=== PATIENT | female | born 1940 | race Caucasian/White ===

== ENCOUNTER 2017-06-24 17:16 | Emergency (ER) | payer OTHER ==
[~2017-06-24] VITALS: Ht 162.6 cm; Wt 93.0 kg
[~2017-06-24 17:16] MED LIST: ALBU0.08 INH; ALBUAER9 INH; ALL180 PO; EPP3 IM; FLUT0.0529; INSUINJ4 SC; IPRA1POW NEB; LEVO25TA5 PO; LOSA50TA6 PO; MOME100A INH; NVLGI SC; NYSTCRE11 TOP; POTA10CA28 PO; PREDPOW47; PRLSR20 PO; VERA180T15 PO; ZAFI1TAB10 PO
[2017-06-24 17:28] VITALS: TEMP 36.8; Ht 162.6 cm; Wt 93.0 kg
[2017-06-24] MEDS ORDERED: NYSS/ PO (17:55)
--- NOTE | 2017-06-24 19:03 | EMERGENCY ROOM VISIT NOTE ---
History Report prepared by Hazel: Ad Maurer Under the Supervision of: Dr. Kian Rowe M.D. First contact with patient: 18:54 Chief Complaint: URINARY SYMPTOMS Stated Complaint: BLADDER NOT DRAINING Nursing Triage Summary: Pt states she can't urinate other than dribbles all day today "and it's blocking my bowel". Last BM yesterday. Pt states she had a UTI for a month and a half starting April 30, took 3 different antibiotics. On premarin cream because "my bladder dropped." states dropped bladder seemed better after starting the cream and the fullness is higher up than her last UTI. History of Present Illness The patient is a 76 year old female who presents to the Emergency Room with complaints of constant urinary retention beginning this morning. The patient states that she was diagnosed with a small bowel obstruction three months ago and a UTI one month ago. She reports that her UTI was treated with amoxicillin, but then her symptoms came back. The patient notes that she was experiencing an increase in urinary frequency and dysuria. She states that she was then treated with a stronger antibiotic. The patient reports that she then began to experience pressure in her bladder, so she went to her doctor. She notes that she was told she had a prolapsed bladder. The patient states that now, she cannot urinate. She reports that when she tries to, it dribbles out. She denies dysuria. The patient notes that she has not seen a urologist or RESEARCH AND DEVELOPMENT RESEARCHER yet. Source of History: patient Onset: this morning Position: other (bladder) Quality: other (urinary retention) Timing: constant Note: Denies: dysuria Review of Systems See HPI for pertinent positives & negatives. A total of 10 systems reviewed and were otherwise negative. Past Medical & Surgical Medical Problems: (1) Anaphylaxis (2) Asthma (3) Benign essential hypertension (4) Diabetes mellitus type 2 (5) Diabetic neuropathy (6) Diverticular disease of colon (7) Dyslipidemia (8) Fatty liver (9) Gastroesophageal reflux disease (10) Generalized osteoarthritis (11) Paroxysmal atrial tachycardia (12) s/p cholecystectomy (13) s/p colonoscopy (14) s/p EGD (15) s/p hysterectomy (16) s/p left TKA (17) s/p right TKA Family History FHx: diabetes FHx: gallbladder disease FHx: heart disease FHx: hypertension FHx: lung disease Social History Smoking Status: Never Smoker Alcohol Use: none Marital Status: Housing Status: lives alone Occupation Status: retired Current/Historical Medications Scheduled Cephalexin Monohydrate (Keflex), 500 MG PO QID Coenzyme Q10 (Ubidecarenone) (Coq-10), 1 TAB PO DAILY Epinephrine (Epipen), 0.3 MG IM UD Estrogens, Conjugated (Premarin), 0.625 MG PO 3XWK Fluticasone Furoate-Vilanterol (Breo Ellipta), 1 PUFF INH Q2D Fluticasone Furoate-Vilanterol (Breo Ellipta), 1 PUFF INH Q2D Grape Seed (Grape Seed Extract), 1 CAP PO DAILY Hydrochlorothiazide (Hctz), 12.5 MG PO DAILY Insulin Aspart (Novolog Flexpen), 28-30 UNITS SQ AC Losartan Potassium (Losartan Potassium), 50 MG PO DAILY Multivitamins/Minerals (Mvi With Minerals), 1 TAB PO DAILY Nystatin (Nystatin Cream), 1 APPL TOP prn Potassium Chloride (Potassium Chloride Sr), 10 MEQ PO DAILY Simvastatin (Simvastatin), 10 MG PO DAILY Verapamil HCl (Verapamil HCl ER), 180 MG PO BID Scheduled PRN Albuterol Hfa (Ventolin Hfa), 2 PUFFS INH Q4 PRN for SOB/Wheezing Albuterol Sulf (Proventil 0.083% 2.5MG/3ML), 1 VIAL NEB Q4 PRN for SOB/Wheezing Doxycycline Hyclate (Doxycycline Hyclate), 1 TAB PO BID PRN for ASTHMA RESQUE KIT Fluticasone Propionate (Nasal) (Flonase Allergy Relief), 1 SPRAY MIRNA DAILY PRN for Nasal Congestion Guaifenesin (Mucinex Maximum Strength), 1 TAB PO BID PRN for congestion Ipratropium Priddy (Atrovent 0.02% Soln), 2.5 ML NEB Q4 PRN for SOB/Wheezing Miscellaneous Medications Nystatin (Nystatin Suspension), 100,000 UNIT PO Allergies Coded Allergies: Chicken Allergy (Verified Allergy, Severe, ANAPHYLAXIS, 07/16/15) Poultry Meal (Verified Allergy, Severe, ANAPHYLAXIS, 07/16/15) Sulfa Drugs (Verified Allergy, Intermediate, HIVES, 07/16/15) Sulfamethoxazole w/Trimethoprim (Verified Allergy, Intermediate, HIVES, ) Amoxicillin (Verified Allergy, Unknown, ?, 07/16/15) NAUSEA Aspirin (Unverified Allergy, Unknown, GI BLEED, 07/16/15) Clavulanic Acid (Verified Allergy, Unknown, ?, 07/16/15) NAUSEA Egg (Verified Allergy, Unknown, ANAPHYLAXIS, 07/16/15) Influenza Virus Vaccine H5N1 (Verified Allergy, Unknown, ANAPHYLAXIS, 07/16) Lisinopril (Unverified Allergy, Unknown, COUGH, 07/16/15) Nizatidine (Verified Allergy, Unknown, ?, 07/16/15) Pioglitazone (Verified Allergy, Unknown, SWELLING, 07/16/15) Metformin (Verified Adverse Reaction, Unknown, DIARRHEA, 07/16/15) Uncoded Allergies: EGGS (Allergy, Unknown, ANAPHYLAXIS, 06/02/15) MONTELUKAST SODIUM (Allergy, Unknown, PRESSURE IN HEAD, EARS, MOUTH DRYNESS , NAUSEA, SKIN HURTS, 06/02/15) Physical Exam Vital Signs Date Time Temp Pulse Resp B/P (MAP) Pulse Ox O2 Delivery O2 Flow Rate FiO2 06/24/17 21:53 76 18 147/76 94 Room Air 06/24/17 21:37 78 06/24/17 21:14 78 17 149/64 92 Room Air 06/24/17 20:05 73 18 153/73 95 Room Air 06/24/17 17:28 36.8 87 18 145/83 93 Room Air Physical Exam GENERAL: Patient is a healthy-appearing well-nourished 76 year old female HEAD: Normocephalic atraumatic EYES: Ocular movements intact pupils equal and react to light OROPHARYNX mucous membranes are moist no exudates present no erythema or edema present NECK: Supple no nuchal rigidity CHEST: Good equal expansion LUNGS: Clear and equal to auscultation CARDIAC: Normal S1 and S2 ABDOMEN: Soft nontender no guarding BACK: No CVA tenderness EXTREMITIES: No pain upon palpation normal muscle strength in all groups no clubbing cyanosis or edema NEURO: Patient is following commands and answering questions appropriately. Alert and oriented x3 Cranial Nerves 2-12 grossly intact Medical Decision & Procedures ER Provider Diagnostic Interpretation: Radiology results as stated below per my review and radiologist interpretation: CT ABD/PELVIS IV CONTRAST ONLY CLINICAL HISTORY: Diffuse abdominal pain COMPARISON STUDY: 08/17/2012 TECHNIQUE: Following the IV administration of 92 mL of Optiray-320, CT scan of the abdomen and pelvis was performed from the lung bases to the proximal femurs. Images are reviewed in the axial, sagittal, and coronal planes. IV contrast was administered without complication. A dose lowering technique was utilized adhering to the principles of ALARA. CT DOSE: 1140.04 mGy.cm FINDINGS: Lower chest: There are bibasal atelectatic changes. Heart is mildly enlarged. Liver: The contrast-enhanced liver is normal in size, contour, and attenuation. There is no intrahepatic biliary ductal dilatation. The hepatic veins and portal veins are patent. Gallbladder: Not visualized and presumed surgically absent Spleen: Normal in size and attenuation. Pancreas: Unremarkable. Adrenal glands: Unremarkable. Kidneys: There is symmetric renal cortical enhancement. The kidneys are normal in size without hydronephrosis. Bowel: There is severe pancolonic diverticulosis. The appendix appears normal. There are no transition zones indicate bowel obstruction. There is no evidence of acute diverticulitis. Peritoneum: There is no intraperitoneal free air or abdominal ascites. There is a small fat-containing lower abdominal ventral hernia Vasculature: The abdominal aorta is normal in course and caliber. Adenopathy: None. Pelvic viscera: There is an indwelling Cartagena catheter. The bladder is decompressed. The uterus appears surgically absent. Skeletal structures: No destructive osseous lesions are seen. IMPRESSION: 1. No evidence of bowel obstruction. No evidence of free air 2. Severe nguyen colonic diverticulosis. No evidence of acute diverticulitis 3. Normal appendix 4. Small fat-containing lower abdominal ventral hernia Electronically signed by: Shady Sanchez M.D. 06/24/2017 8:47 PM Dictated Date/Time: 06/24/2017 8:41 PM Laboratory Results 06/24/17 19:55 Red Blood Count 4.92, Mean Corpuscular Volume 92.1, Mean Corpuscular Hemoglobin 31.1, Mean Corpuscular Hemoglobin Concent 33.8, Mean Platelet Volume 10.5, Neutrophils (%) (Auto) 54.0, Lymphocytes (%) (Auto) 32.6, Monocytes (%) (Auto) 11.4, Eosinophils (%) (Auto) 1.5, Basophils (%) (Auto) 0.3, Neutrophils # (Auto ) 5.98, Lymphocytes # (Auto) 3.61, Monocytes # (Auto) 1.26, Eosinophils # (Auto ) 0.17, Basophils # (Auto) 0.03 06/24/17 19:55 Test 06/24/17 19:15 06/24/17 19:55 06/24/17 20:02 06/24/17 21:10 Urine Color YELLOW Urine Appearance CLOUDY (CLEAR) Urine pH 6.0 (4.5-7.5) Urine Specific [place] 1.022 (1.000-1.030) Urine Protein NEG (NEG) Urine Glucose (UA) NEG (NEG) Urine Ketones NEG (NEG) Urine Occult Blood NEG (NEG) Urine Nitrite NEG (NEG) Urine Bilirubin NEG (NEG) Urine Urobilinogen NEG (NEG) Urine Leukocyte Esterase LARGE (NEG) Urine WBC (Auto) >30 /hpf (0-5) Urine RBC (Auto) 0-4 /hpf (0-4) Urine Hyaline Casts (Auto) 0 /lpf (0-5) Urine Epithelial Cells (Auto) 0-5 /lpf (0-5) Urine Bacteria (Auto) 4+ (NEG) White Blood Count 11.07 K/uL (4.8-10.8) Red Blood Count 4.92 M/uL (4.2-5.4) Hemoglobin 15.3 g/dL (12.0-16.0) Hematocrit 45.3 % (37-47) Mean Corpuscular Volume 92.1 fL (80-100) Mean Corpuscular Hemoglobin 31.1 pg (25-34) Mean Corpuscular Hemoglobin Concent 33.8 g/dl (32-36) Platelet Count 221 K/uL (130-400) Mean Platelet Volume 10.5 fL (7.4-10.4) Neutrophils (%) (Auto) 54.0 % Lymphocytes (%) (Auto) 32.6 % Monocytes (%) (Auto) 11.4 % Eosinophils (%) (Auto) 1.5 % Basophils (%) (Auto) 0.3 % Neutrophils # (Auto) 5.98 K/uL (1.4-6.5) Lymphocytes # (Auto) 3.61 K/uL (1.2-3.4) Monocytes # (Auto) 1.26 K/uL (0.11-0.59) Eosinophils # (Auto) 0.17 K/uL (0-0.5) Basophils # (Auto) 0.03 K/uL (0-0.2) RDW Standard Deviation 45.5 fL (36.4-46.3) RDW Coefficient of Variation 13.5 % (11.5-14.5) Immature Granulocyte % (Auto) 0.2 % Immature Granulocyte # (Auto) 0.02 K/uL (0.00-0.02) Est Creatinine Clear Calc Drug Dose 60.3 ml/min Estimated GFR () 76.1 Estimated GFR (Non- 65.6 BUN/Creatinine Ratio 17.4 (10-20) Calcium Level 9.2 mg/dl (8.5-10.1) Total Bilirubin 0.4 mg/dl (0.2-1) Direct Bilirubin < 0.1 mg/dl (0-0.2) Aspartate Amino Transf (AST/SGOT) 20 U/L (15-37) Alanine Aminotransferase (ALT/SGPT) 38 U/L (12-78) Alkaline Phosphatase 89 U/L (45-117) Total Protein 7.5 gm/dl (6.4-8.2) Albumin 3.6 gm/dl (3.4-5.0) Lipase 108 U/L (73-393) Bedside Hemoglobin 16.0 g/dl (12.0-16.0) Bedside Hematocrit 47 % (37-47) Bedside Sodium 142 mEq/L (135-144) Bedside Potassium 4.1 mEq/L (3.3-5.0) Bedside Chloride 105 mEq/L (101-112) Bedside Total CO2 28 mEq/l (24-31) Anion Gap 15.0 mmol/L (16-25) Bedside Blood Urea Nitrogen 18 mg/dl (7-18) Bedside Creatinine 0.7 mg/dl (0.6-1.3) Bedside Glucose (other) 71 mg/dl (70-99) Bedside Ionized Calcium ([place]) 1.17 mmol/l (1.12-1.32) Bedside Glucose 129 mg/dl (70-90) Labs reviewed by ED physician. Medications Administered Medications (Trade) Dose Ordered Sig/Lyle Route Start Time Stop Time Status Last Admin Dose Admin Sodium Chloride 1,000 ml @ 999 mls/hr Q1H1M STAT IV 06/24/17 19:39 06/24/17 20:39 DC 8/29/17 20:17 999 MLS/HR Ceftriaxone Sodium (Rocephin Inj) 1 gm NOW STAT IV 06/24/17 19:55 06/24/17 19:56 DC 06/24/17 20:20 1 GM ED Course 1855: Past medical records reviewed. The patient was evaluated in room B04B. A complete history and physical examination was performed. 1938: Ordered Sodium Chloride 1000 ml @ 999 mls/hr IV 1954: Ordered Rocephin Inj 1gm IV 2058: I reevaluated the patient and discussed current exam findings. She has shown great improvement of her symptoms. 2144: Upon reexamination the patient is feeling better. I discussed results and treatment plan with the patient. She verbalizes agreement and understanding. The patient is ready for discharge. Medical Decision This is a 76-year-old female who presents emergency department urinary complaints. Based on the patient's complaints a Cartagena catheter was first started however very little was drained. The patient does have a large amount of white blood cells in her urine and does appear to have an infection. For this reason she was started on Rocephin in the emergency department. The patient was sent for CAT scan of the abdomen pelvis however there does not appear to be in any acute process. I do believe that the patient as well as to be discharged home for follow-up with her primary care physician. Patient and family were in agreement with the treatment plan. Medication Reconcilliation Current Medication List: was personally reviewed by me Blood Pressure Screening Patient's blood pressure: Elevated blood pressure Blood pressure disposition: Referred to PCP Impression Primary Impression: Symptoms of urinary tract infection Scribe Attestation The scribe's documentation has been prepared under my direction and personally reviewed by me in its entirety. I confirm that the note above accurately reflects all work, treatment, procedures, and medical decision making performed by me. Departure Information Dispostion Home / Self-Care Prescriptions Cephalexin Monohydrate (KEFLEX) 500 Mg Cap 500 MG PO QID for 10 Days, #40 CAP Prov: Kian Rowe MD 06/24/17 Referrals Mel Vitale M.D. (PCP) Forms HOME CARE DOCUMENTATION FORM, IMPORTANT VISIT INFORMATION Patient Instructions My [facility] Additional Instructions Follow up with DR Nettles' office You were found to have an elevated blood pressure today (>120 sytolic or >90 diastolic). Per medicare guidelines, you need to follow up with this blood pressure screening with your Primary Care Physician (PCP). For a new PCP call [phone]. Culture results are usually available in approx 48 hours You have been examined and treated today on an emergency basis only. This is not a substitute for, or an effort to provide, complete comprehensive medical care. It is impossible to recognize and treat all injuries or illnesses in a single emergency department visit. It is therefore important that you follow up closely with Dr Scott. Call as soon as possible for an appointment. Thank you for your time and consideration. I look forward to speaking with you again soon. Please don't hesitate to call us if you have any questions.
[2017-06-24] MEDS ORDERED: SODIUM CHLORIDE 0.9% 1000ML 1,000 ML IV STA (19:39)
[2017-06-24 19:42] LABS: URINE APPEARANCE CLOUDY (CLEAR); URINE BILIRUBIN NEG (NEG); URINE COLOR YELLOW; URINE EPITHELIAL CELL AUTO 0-5 /lpf (0-5); URINE NITRITE NEG (NEG); URINE SPECIFIC GRAVITY 1.022 (1.000-1.030); UROBILINOGEN NEG (NEG); ZZURINE CULT IF INDIC CATH YES
[2017-06-24] MEDS ORDERED: OPTIRAY 320 IV PRN (19:45)
[2017-06-24 19:48] LABS: MANUAL MICROSCOPIC REQUIRED? NO; REVIEW REQ? NO
[2017-06-24] MEDS ORDERED: FLUT1INH INH (19:55)
[2017-06-24] MEDS ORDERED: PRM625 PO (19:55)
[2017-06-24] MEDS ORDERED: NVLGI/PEN SQ (19:55)
[2017-06-24] MEDS ORDERED: FLUT0.15 NAE (19:55)
[2017-06-24] MEDS ORDERED: SIMV-151 PO (19:55)
[2017-06-24] MEDS ORDERED: PROP1SOL OPB (19:55)
[2017-06-24] MEDS ORDERED: COEN100C11 PO (19:55)
[2017-06-24] MEDS ORDERED: CEFTRIAXONE SOD INJ 1 GM ADDVIAL IV STA (19:55)
[2017-06-24] MEDS ORDERED: MULT-513 PO (19:55)
[2017-06-24] MEDS ORDERED: GRAP50CA3 PO (19:55)
[2017-06-24] MEDS ORDERED: NYSCR30 TOP (19:55)
[2017-06-24] MEDS ORDERED: EPP3/2 IM (19:55)
[2017-06-24] MEDS ORDERED: DOXY100T PO (19:55)
[2017-06-24] MEDS ORDERED: ALBINS/ NEB (19:55)
[2017-06-24] MEDS ORDERED: CZR50 PO (19:55)
[2017-06-24] MEDS ORDERED: VRPSR180 PO (19:55)
[2017-06-24] MEDS ORDERED: VNTHFA/IN INH (19:55)
[2017-06-24] MEDS ORDERED: GUAI1TAB69 PO (19:55)
[2017-06-24] MEDS ORDERED: POTA10TA33 PO (19:55)
[2017-06-24] MEDS ORDERED: ATRINSX NEB (19:55)
[2017-06-24 20:14] LABS: BASO % 0.3 %; BASO ABS # 0.03 K/uL (0-0.2); COMPLETE YES; EOS % 1.5 %; HEMATOCRIT 45.3 % (37-47); IG% 0.2 %; LYMPH % 32.6 %; LYMPH ABS # 3.61 K/uL (1.2-3.4); MEAN CELL VOLUME 92.1 fL (80-100); MEAN CORPUSCULAR HEMOGLOBIN 31.1 pg (25-34); MEAN CORPUSCULAR HGB CONC 33.8 g/dl (32-36); MEAN PLATELET VOLUME 10.5 fL (7.4-10.4); MONO % 11.4 %; PLATELET COUNT 221 K/uL (130-400); RED BLOOD COUNT 4.92 M/uL (4.2-5.4); WHITE BLOOD COUNT 11.07 K/uL (4.8-10.8)
[2017-06-24 20:15] LABS: ISTAT CREATININE 0.7 mg/dl (0.6-1.3); ISTAT IONIZED CALCIUM 1.17 mmol/l (1.12-1.32)
--- NOTE | 2017-06-24 20:48 | DIAGNOSTIC IMAGING REPORT ---
CT ABD/PELVIS IV CONTRAST ONLY CLINICAL HISTORY: Diffuse abdominal pain COMPARISON STUDY: 08/17/2012 TECHNIQUE: Following the IV administration of 92 mL of Optiray-320, CT scan of the abdomen and pelvis was performed from the lung bases to the proximal femurs. Images are reviewed in the axial, sagittal, and coronal planes. IV contrast was administered without complication. A dose lowering technique was utilized adhering to the principles of ALARA. CT DOSE: 1140.04 mGy.cm FINDINGS: Lower chest: There are bibasal atelectatic changes. Heart is mildly enlarged. Liver: The contrast-enhanced liver is normal in size, contour, and attenuation. There is no intrahepatic biliary ductal dilatation. The hepatic veins and portal veins are patent. Gallbladder: Not visualized and presumed surgically absent Spleen: Normal in size and attenuation. Pancreas: Unremarkable. Adrenal glands: Unremarkable. Kidneys: There is symmetric renal cortical enhancement. The kidneys are normal in size without hydronephrosis. Bowel: There is severe pancolonic diverticulosis. The appendix appears normal. There are no transition zones indicate bowel obstruction. There is no evidence of acute diverticulitis. Peritoneum: There is no intraperitoneal free air or abdominal ascites. There is a small fat-containing lower abdominal ventral hernia Vasculature: The abdominal aorta is normal in course and caliber. Adenopathy: None. Pelvic viscera: There is an indwelling Cartagena catheter. The bladder is decompressed. The uterus appears surgically absent. Skeletal structures: No destructive osseous lesions are seen. IMPRESSION: 1. No evidence of bowel obstruction. No evidence of free air 2. Severe nguyen colonic diverticulosis. No evidence of acute diverticulitis 3. Normal appendix 4. Small fat-containing lower abdominal ventral hernia Electronically signed by: Shady Sanchez M.D. 06/24/2017 8:47 PM Dictated Date/Time: 06/24/2017 8:41 PM
[2017-06-24] MEDS ORDERED: HYDR12.56 PO (20:56)
[2017-06-24 21:01] LABS: ALKALINE PHOSPHATASE 89 U/L (45-117); ALT/SGPT 38 U/L (12-78); AST/SGOT 20 U/L (15-37); BLOOD UREA NITROGEN 15 mg/dl (7-18); BUN/CREATININE RATIO 17.4 (10-20); CALCIUM 9.2 mg/dl (8.5-10.1); CARBON DIOXIDE 28 mmol/L (21-32); CHLORIDE 108 mmol/L (98-107); CREATININE 0.85 mg/dl (0.60-1.20); GLUCOSE 68 mg/dl (70-99); SODIUM 143 mmol/L (136-145)
[2017-06-24] MEDS ORDERED: CEPH500C2 PO (21:51)
[2017-06-24 21:53] VITALS: BP 147/76; PULSE 76; O2SAT 94
--- NOTE | 2017-06-26 13:11 | Pharmacy Progress Note ---
ED Pharmacist Culture FollowUp Date of Service: Jun 26, 2017. Patient was sent home with a prescription for cephalexin 500mg QID x 10 days, which should cover the E. coli growing from the patient's urine culture.
[2017-08-05] MEDS ORDERED: PRMVC (07:43)
== END 2017-06-24 22:07 | disposition home or self-care (01) ==
LOC: C.EDB 17:17
DX: R33.9 Retention of urine, unspecified (principal); J45.909 Unspecified asthma, uncomplicated; I10 Essential (primary) hypertension; E11.40 Type 2 diabetes mellitus with diabetic neuropathy, unspecified; E78.5 Hyperlipidemia, unspecified; K76.0 Fatty (change of) liver, not elsewhere classified; K21.9 Gastro-esophageal reflux disease without esophagitis; M19.90 Unspecified osteoarthritis, unspecified site; I47.1 Supraventricular tachycardia; K57.92 Diverticulitis of intestine, part unspecified, without perforation or abscess without bleeding; Z83.3 Family history of diabetes mellitus; Z83.79 Family history of other diseases of the digestive system; Z82.49 Family history of ischemic heart disease and other diseases of the circulatory system; Z83.6 Family history of other diseases of the respiratory system; Z79.4 Long term (current) use of insulin; Z79.899 Other long term (current) drug therapy

== ENCOUNTER → 2017-08-12 | Day surgery (SDC) | payer OTHER ==
[2017-08-05 07:43] VITALS: BMI 34.0
[~2017-08-12] VITALS: Ht 162.6 cm; Wt 90.9 kg
[~2017-08-12] MED LIST changes: +ALBINS/ NEB; -ALBU0.08 INH; -ALBUAER9 INH; -ALL180 PO; +ATRINSX NEB; +COEN100C11 PO; +CZR50 PO; +DOXY100T PO; -EPP3 IM; +EPP3/2 IM; +FENTANYL CITRATE INJ 50 MCG/1 ML 2 ML VIAL ONE; -FLUT0.0529; +FLUT0.15 NAE; +FLUT1INH INH; +GRAP50CA3 PO; +GUAI1TAB69 PO; +HYDR12.56 PO; -INSUINJ4 SC; -IPRA1POW NEB; +KETAMINE HCL INJ 50 MG/ML 10 ML VIAL ONE; -LEVO25TA5 PO; -LOSA50TA6 PO; +MIDAZOLAM HCL 1 MG/ML 2ML VIAL ONE; -MOME100A INH; +MULT-513 PO; -NVLGI SC; +NVLGI/PEN SQ; +NYSCR30 TOP; +NYSS/ PO; -NYSTCRE11 TOP; +ONDANSETRON INJ 2 MG/ML 2 ML VIAL ONE; -POTA10CA28 PO; +POTA10TA33 PO; -PREDPOW47; -PRLSR20 PO; +PRMVC; +SIMV-151 PO; +SODIUM CHLORIDE 0.9% 500ML 500 ML IV ONE; +SODIUM CHLORIDE 0.9% INJ 10 ML VIAL ONE; -VERA180T15 PO; +VNTHFA/IN INH; +VRPSR180 PO; -ZAFI1TAB10 PO
[2017-08-12 10:08] VITALS: Ht 162.6 cm; Wt 90.9 kg
--- NOTE | 2017-08-12 10:37 | Endo History and Physical ---
History & Physical Date of Service: Aug 12, 2017. Chief Complaint: hx Barretts Referring Physician: Dr. Scott History of Present Illness 76 yo presenting for follow up of [facility] for EGD Past Medical History Diabetes, Asthma, Gastrointestinal Disorder, Reflux, High Cholesterol, Heart Disease, Hypertension, Liver Disease Past Surgical History Hx Cardiac Surgery: No Hx Internal Defibrillator: No Hx Pacemaker: No Hx Abdominal Surgery: Yes (LUDWIG, EMMY BSO, ) Hx of Implantable Prosthesis: No Hx Post-Op Nausea and Vomiting: No Hx Cancer Surgery: No Hx Thoracic Surgery: No Hx Orthopedic: Yes (LT/RT TKA) Hx Urinary Tract Surgery: No Family History None Social History Smoking Status: Never Smoker Hx Substance Use: No Hx Alcohol Use: No Allergies Coded Allergies: Chicken Allergy (Verified Allergy, Severe, ANAPHYLAXIS, 08/12/17) Poultry Meal (Verified Allergy, Severe, ANAPHYLAXIS, 08/12/17) Propofol (Verified Allergy, Severe, R/T EGG ALLERGY - ANAPHYLAXIS, ) Sulfa Drugs (Verified Allergy, Intermediate, HIVES, 08/12/17) Sulfamethoxazole w/Trimethoprim (Verified Allergy, Intermediate, HIVES, ) Amoxicillin (Verified Allergy, Unknown, ?, 08/12/17) NAUSEA Aspirin (Unverified Allergy, Unknown, GI BLEED, 08/12/17) Clavulanic Acid (Verified Allergy, Unknown, ?, 08/12/17) NAUSEA Egg (Verified Allergy, Unknown, ANAPHYLAXIS, 08/12/17) Influenza Virus Vaccine H5N1 (Verified Allergy, Unknown, ANAPHYLAXIS, ) Lisinopril (Unverified Allergy, Unknown, COUGH, 08/12/17) Nizatidine (Verified Allergy, Unknown, ?, 08/12/17) Pioglitazone (Verified Allergy, Unknown, SWELLING, 08/12/17) Metformin (Verified Adverse Reaction, Unknown, DIARRHEA, 08/12/17) Uncoded Allergies: EGGS (Allergy, Unknown, ANAPHYLAXIS, 06/02/15) MONTELUKAST SODIUM (Allergy, Unknown, PRESSURE IN HEAD, EARS, MOUTH DRYNESS , NAUSEA, SKIN HURTS, 06/02/15) Current Medications Reported Home Medications Medications Dose Route/Sig Max Daily Dose Days Date Category Dose Instructions Premarin (Estrogens, Conjugated) 14 Appln/30 Gm Cr 1 Dose 2XWK 08/05/17 Reported Mvi With Minerals (Multivitamins/Minerals) Tab 1 Tab PO DAILY 06/24/17 Reported Coq-10 (Coenzyme Q10 (Ubidecarenone)) Unknown Strength Cap 1 Tab PO DAILY 06/24/17 Reported Grape Seed Extract (Grape Seed) 50 Mg Cap 1 Cap PO DAILY 06/24/17 Reported Mucinex Maximum Strength (Guaifenesin) 1,200 Mg Tab 1 Tab PO BID PRN 15 06/24/17 Reported Flonase Allergy Relief (Fluticasone Propionate (Nasal)) 50 Mcg/Act Spr 1 [place] MIRNA DAILY PRN 06/24/17 Reported Epipen (Epinephrine) 0.3 Mg/0.3 Ml Inj 0.3 Mg IM UD 06/24/17 Reported Proventil 0.083% 2.5MG/3ML (Albuterol Sulf) 2.5 Mg/3 Ml Nebu 1 Vial NEB Q4 PRN 06/24/17 Reported Doxycycline Hyclate 100 Mg Tab 1 Tab PO BID PRN 10 06/24/17 Reported Ventolin Hfa (Albuterol) 200 Puffs/38008 Mcg Aers 2 Puffs INH Q4 PRN 06/24/17 Reported Verapamil HCl ER (Verapamil HCl) 180 Mg Tabcr 180 Mg PO BID 06/24/17 Reported Losartan Potassium 50 Mg Tab 50 Mg PO QAM 06/24/17 Reported Atrovent 0.02% Soln (Ipratropium [place]) 2.5 Ml Nebu 2.5 Ml NEB Q4 PRN 06/24/17 Reported Nystatin Cream (Nystatin) 90 Appln/30 Gm Cr 1 Appl TOP PRN 06/24/17 Reported APPLY TO RASH IN GROIN AREA OR BREAST PRN Simvastatin 20 Mg Tab 0.5 Tab PO QPM 06/24/17 Reported Potassium Chloride Sr (Potassium Chloride) 10 Meq Tab 10 Meq PO QAM 06/24/17 Reported Novolog Flexpen (Insulin Aspart) 100 Units/Ml Inj 28-30 Units SQ AC 06/24/17 Reported Breo Ellipta (Fluticasone Furoate-Vilanterol) 1 Inh Inh 1 Puff INH Q2D 06/24/17 Reported 100-25 MCG STRENGTH, ALTERNATE WITH 200-25 MCG Breo Ellipta (Fluticasone Furoate-Vilanterol) 1 Inh Inh 1 Puff INH Q2D 06/24/17 Reported 200-25 MCG, ALTERNATE QOD WITH 100-25MCG Nystatin Suspension (Nystatin) 1 Ml Susp 100,000 Unit PO 08/05/14 Reported TAKE 5 ML 4 TIMES A DAY NEEDED FOR THRUSH Hctz (Hydrochlorothiazide) 12.5 Mg Cap 12.5 Mg PO QAM 08/17/12 Reported Vital Signs Weight (Kilograms): 90.91 Height (Feet): 5 Height (Inches): 4 Date Time Temp Pulse Resp B/P (MAP) Pulse Ox O2 Delivery O2 Flow Rate FiO2 08/12/17 10:14 36.7 75 22 168/75 (106) 94 Room Air Physical Exam General Appearance: WD/WN, no apparent distress Respiratory/Chest: Respiratory effort: no dyspnea Cardiovascular: Apical Impulse: not displaced Heart Auscultation: RRR Abdomen: Bowel Sounds: normal Inspection & Palpation: soft Assessment and Plan 76 yo presenting for EGD f/u of [facility]
--- NOTE | 2017-08-12 11:10 | GI REPORT ---
Procedure Date: 08/12/2017 10:12 AM Procedure: Upper GI endoscopy Indications: Follow-up of Johnson's esophagus Medicines: General Anesthesia Complications: No immediate complications. Estimated blood loss: None. Estimated Blood Loss: Estimated blood loss: none. Procedure: Pre-Anesthesia Assessment: - Pre-Anesthesia Assessment: - Prior to the procedure, a History and Physical was performed, and patient medications, allergies and sensitivities were reviewed. The patient's tolerance of previous anesthesia was reviewed. Please see [facility] for complete details. - The risks and benefits of the procedure and the sedation options and risks were discussed with the patient. All questions were answered and informed consent was obtained. - Patient identification and proposed procedure were verified prior to the procedure by the physician and the nurse. The procedure was verified in the pre-procedure area in the procedure room. After obtaining informed consent, the endoscope was passed carefully and meticuously under direct vision and only advanced when the lumen was clearly identified, C02 insuflation was utilized throughout the entirity of the procedure. Throughout the procedure, the patient's blood pressure, pulse, and oxygen saturations were monitored continuously. After obtaining informed consent, the endoscope was passed under direct vision. Throughout the procedure, the patient's blood pressure, pulse, and oxygen saturations were monitored continuously. The scope was introduced through the mouth, and advanced to the second part of duodenum. The upper GI endoscopy was accomplished without difficulty. The patient tolerated the procedure well. Findings: The esophagus and gastroesophageal junction were examined with white light and narrow band imaging (NBI) from a forward view and retroflexed position. There were esophageal mucosal changes classified as Johnson's stage C1-M1 per [facility] criteria. These changes involved the mucosa at the upper extent of the gastric folds (40 cm from the incisors) extending to the Z-line (39 cm from the incisors). The maximum longitudinal extent of these esophageal mucosal changes was 1 cm in length. Mucosa was biopsied with a cold forceps for histology in a targeted manner at intervals of 1 cm from 39 to 40 cm from the incisors. A total of 2 specimen bottles were sent to pathology. A hiatus hernia was present. One non-bleeding superficial gastric ulcer with a clean ulcer base (Solitario Class III) was found in the prepyloric region of the stomach. The lesion was 5 mm in largest dimension. Biopsies were taken with a cold forceps for histology. The examined duodenum was normal. Impression: - Esophageal mucosal changes classified as Johnson's stage C1-M1 per [facility] criteria. Biopsied. - Hiatus hernia. - Non-bleeding gastric ulcer with a clean ulcer base (Solitario Class III). Biopsied. - Normal examined duodenum. Recommendation: - Discharge patient to home (with escort). - Use Prilosec (omeprazole) 40 mg PO BID for 2 months. - Repeat the upper endoscopy in 2 months to check healing. - No aspirin, ibuprofen, naproxen, or other non-steroidal anti-inflammatory drugs. Loy Stallworth MD 08/12/2017 11:10:02 AM This report has been signed electronically. Note Initiated On: 08/12/2017 10:12 AM I attest to the content of the Intraoperative Record and orders documented therein, exceptions below
--- NOTE | 2017-08-12 11:14 | Discharge Instructions ---
Endoscopy Patient Instructions Date / Procedure(s) Performed Aug 12, 2017. EGD Allergy Information Coded Allergies: Chicken Allergy (Verified Allergy, Severe, ANAPHYLAXIS, 08/12/17) Poultry Meal (Verified Allergy, Severe, ANAPHYLAXIS, 08/12/17) Propofol (Verified Allergy, Severe, R/T EGG ALLERGY - ANAPHYLAXIS, ) Sulfa Drugs (Verified Allergy, Intermediate, HIVES, 08/12/17) Sulfamethoxazole w/Trimethoprim (Verified Allergy, Intermediate, HIVES, ) Amoxicillin (Verified Allergy, Unknown, ?, 08/12/17) NAUSEA Aspirin (Unverified Allergy, Unknown, GI BLEED, 08/12/17) Clavulanic Acid (Verified Allergy, Unknown, ?, 08/12/17) NAUSEA Egg (Verified Allergy, Unknown, ANAPHYLAXIS, 08/12/17) Influenza Virus Vaccine H5N1 (Verified Allergy, Unknown, ANAPHYLAXIS, ) Lisinopril (Unverified Allergy, Unknown, COUGH, 08/12/17) Nizatidine (Verified Allergy, Unknown, ?, 08/12/17) Pioglitazone (Verified Allergy, Unknown, SWELLING, 08/12/17) Metformin (Verified Adverse Reaction, Unknown, DIARRHEA, 08/12/17) Uncoded Allergies: EGGS (Allergy, Unknown, ANAPHYLAXIS, 06/02/15) MONTEL[place]AST SODIUM (Allergy, Unknown, PRESSURE IN HEAD, EARS, MOUTH DRYNESS , NAUSEA, SKIN HURTS, 06/02/15) Discharge Date / Findings Aug 12, 2017. Small ulcer Esophagitis Johnson's Will start you on Prilosec 40 mg twice daily for two months, and then repeat your procedure in 2 months. Avoid NSAIDs Medication Instructions Stopped Medication(s): told to only take BP meds Provider Instructions Activity Restrictions - No exercising or heavy lifting for 24 hours. - Do not drink alcohol the day of the procedure. - Do not drive a car or operate machinery until the day after the procedure. - Do not make any important decisions or sign important papers in 24 hours after the procedure. Following Day: - Return to full activity which may include returning to work/school. Diet Start your diet with liquids and light foods (jello, soup, juice, toast). Then eat your usual diet if not nauseated. Treatment For Common After Affects For mild abdominal pain, bloating, or excessive gas: - Rest - Eat lightly - Lie on right side Follow-Up Information Follow-up with Dr. Scott as scheduled Anesthesia Information What You Should Know You have had a procedure that required some medicine to reduce anxiety and discomfort. This treatment is called moderate sedation. After receiving the treatment, you may be sleepy, but you will be able to breathe on your own. The effects of the treatment may last for several hours. Follow these instructions along with Activity/Diet recommendations noted above: * Do NOT do anything where dizziness or clumsiness would be dangerous. * Rest quietly at home today, then you can be up and about tomorrow. * Have a responsible person stay with you the rest of today. * You may have had an I.V. today. If so, you may take the dressing off later today. Recommendations Call your doctor if: * Trouble breathing * Continuous vomiting for more than 24 hours * Temperature above 101 degrees * Severe abdominal pain or bloating * Pain not relieved by pain medicine ordered * There is increased drainage or redness from any incision * A large amount of rectal bleeding greater than 2-3 tablespoons. (If you had a polyp/s removed or have hemorrhoids, a small amount of blood - from the rectum is to be expected.) * You have any unanswered questions or concerns. IN THE EVENT OF A SERIOUS EMERGENCY, GO TO THE NEAREST EMERGENCY ROOM Your discharge instructions were prepared by provider Loy Stallworth. Patient Instructions Signature Page Mehreen Araujo Patient (or Guardian) Signature/Date: I have read and understand the instructions given to me by my caregivers. Caregiver/RN/Doctor Signature/Date: The above-named patient and/or guardian has received patient instructions on this date. + Original Patient Signature Page (only) stays with chart. Please make copy for patient.
--- NOTE | 2017-08-12 11:42 | Anesthesiology Progress Note ---
Anesthesia Post Op Note Date & Time Aug 12, 2017 at 11:42 Vital Signs Pain Intensity: 0 Vital Signs Past 12 Hours Date Time Temp Pulse Resp B/P (MAP) Pulse Ox O2 Delivery O2 Flow Rate FiO2 08/12/17 11:18 72 20 127/63 (84) 99 Room Air 08/12/17 11:03 73 20 132/72 (92) 99 Room Air 08/12/17 10:14 36.7 75 22 168/75 (106) 94 Room Air Notes Mental Status: alert / awake / arousable, participated in evaluation Pt Amnestic to Procedure: Yes Nausea / Vomiting: adequately controlled Pain: adequately controlled Airway Patency, RR, SpO2: stable & adequate BP & HR: stable & adequate Hydration State: stable & adequate Anesthetic Complications: no major complications apparent
[2017-08-12 11:57] VITALS: BP 135/88; PULSE 65; O2SAT 95
== END | disposition home or self-care (01) ==
LOC: C.GI 09:45
PROVIDERS: ATTEND Internal Medicine
DX: Z09 Encounter for follow-up examination after completed treatment for conditions other than malignant neoplasm (principal); K22.70 Barrett's esophagus without dysplasia; E11.9 Type 2 diabetes mellitus without complications; K44.9 Diaphragmatic hernia without obstruction or gangrene; K25.9 Gastric ulcer, unspecified as acute or chronic, without hemorrhage or perforation; J45.909 Unspecified asthma, uncomplicated; E78.00 Pure hypercholesterolemia, unspecified; I10 Essential (primary) hypertension; Z79.4 Long term (current) use of insulin; Z90.49 Acquired absence of other specified parts of digestive tract; Z96.653 Presence of artificial knee joint, bilateral; Z68.34 Body mass index [BMI] 34.0-34.9, adult; Z88.2 Allergy status to sulfonamides; Z88.1 Allergy status to other antibiotic agents; Z91.012 Allergy to eggs; Z91.018 Allergy to other foods

== ENCOUNTER 2019-06-14 07:52 | Observation (INO) ==
--- OUTSIDE RECORDS SUMMARY | 2019-06-14 07:56 | External Medical Summary | Continuity of Care Document ---
:1940 Author Name Tiffanie Fu, Provider Address Unavailable Unavailable , Care Team Providers Name Role Phone Unavailable Unavailable Unavailable Teddy Kay M.D. Unavailable [email or web address] 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) Diverticulosis (562.10) (K57.90) Dyslipidemia (272.4) (E78.5) Diabetic polyneuropathy (250.60) (E11.42) Paroxysmal atrial tachycardia (427.0) (I47.1) Hypertension (401.9) (I10) Type 2 diabetes mellitus (250.00) (E11.9) Osteoarthritis (715.90) Allergies and Adverse Reactions Actos TABS (Allergy) Reaction: Edema Amoxicillin TABS (Allergy) Aspirin TABS (Allergy) Augmentin TABS (Allergy) Bactrim TABS (Allergy) Reaction: Hives Influenza (Split PF) (Allergy) Lisinopril TABS (Allergy) Reaction: Coug h Morphine Derivatives (Allergy) Nizatidine CAPS (Allergy) Riomet SOLN (Allergy) Reaction: Diarrhea Eggs (Allergy) Medications Verapamil HCl ER 180 MG Oral Capsule Ext ended Release 24 Hour; Take 1 capsule twice daily SIDRA Page Start: 16-Apr-2012 Refills: 0 Proventil HFA 108 (90 Base) MCG/ACT Inha lation Aerosol Solution; USE 2 PUFFS EVERY 6 HOURS DIRECTED. , M.D. Refills: 0 Vitamin D-3 5000 UNIT Oral Tablet; Take 1 tablet daily , M.D . Refills: 0 Multivitamins TABS; TAKE 1 TABLET DAILY. , M.D. Refills: 0 Cozaar 50 MG Oral Tablet; TAKE 1 TABLET DAILY. , M.D. Refills: 0 EpiPen 0.3 MG/0.3ML (1:1000) USAMA; INJECT INTRAMUSCULARLY DIRECTED. , M.D. Refills: 0 Simvastatin 10 MG Oral Tablet; TAKE 20 MG Daily , M.D. Refills: 0 NovoLIN 70/30 SUSP; USE DIRECTED. , M.D. Refills: 0 Corinne 180 MG TABS; TAKE 1 TABLET DAILY. , M.D. Refills: 0 Albuterol Sulfate (2.5 MG/3ML) 0.083% In halation Nebulization Solution; USE 1 UNIT DOSE EVERY 4-6 HOURS NEEDED FOR WHEEZING . , M.D. Refills: 0 Chelated Magnesium TABS; TAKE 1 TABLET Daily 250mg , M.D. Refills: 0 Zafirlukast 20 MG Oral Tablet; TAKE 1 TABLET EVERY 12 HOURS DAILY. Tank Kay Start: 07-Feb-2014 Quantity: 60 Refills: 3 Montelukast Sodium 10 MG Oral Tablet; TAKE 1 TABLET BY MOUTH AT BEDTIME Tank Kay Start: 01-Feb-2014 Quantity: 30 Refills: 11 predniSONE 10 MG Oral Tablet; 4 tablets daily for 3 days, 3 tablets daily for 3 days, 2 tablets daily for 3 days, one tablet daily for 3 days, then discontinue. Tank Kay Start: 22-Jul-2014 Quantity: 30 Refills: 1 Azithromycin 250 MG Oral Tablet; Take 2 tablets on day one, then one tablet daily for 4 days. Tank Kay Start: 22-Jul-2014 Quantity: 6 Refills: 1 Lantus 100 UNIT/ML Subcutaneous Solution; USE DIRECTED. , M.D. Refills: 0 Nystatin 757480 UNIT/ML Mouth/Throat Suspension; CHEW SARAH DIDDIPIKA M.DCharo Refills: 0 Mucinex TB12; TAKE 1 TABLET EVERY 12 HOURS NEEDED FOR CON GESTION. , M.D. Refills: 0 Systane Balance 0.6 % SOLN; INSTILL DROP As Directed , MCharoDCharo Refills: 0 Dulera 200-5 MCG/ACT Inhalation Aerosol; INHALE 2 PUFF S TWICE DAILY. Tank Kay Start: 01-Feb-2014 Quantity: 1 13 GM Inhaler Refills: 11 Probiotic Oral Capsule , M.D. Refills: 0 Potassium Chloride ER 10 MEQ Oral Capsul e Extended Release; TAKE 0.5 CAPSULE Daily , M.D. Refills: 0 hydroCHLOROthiazide 12.5 MG Oral Tablet; TAKE 1 TABLET DAILY . , M.D. Refills: 0 CoQ10 100 MG Oral Capsule; TAKE DIRECTED. , M.D. Refills: 0 Grape Seed Extract CAPS; TAKE 1 CAPSULE Daily , M.D. Refills: 0 Vicodin 5-500 MG TABS; TAKE 1 TO 2 TABLETS EVERY 6 WALT RS NEEDED FOR PAIN. , M.D. Refills: 0 Procedures History of Cholecystectomy Status: Compl eted History of Colonoscopy (Fiberoptic) Stat us: Completed History of Hysterectomy Status: Complete d History of Total Knee Arthroplasty Statu s: Completed History of Nasal Endoscopy Polypectomy S tatus: Completed Immunizations Immunizations not documented Family History Father Family history of Aneurysm Of Abdominal Aorta Status: Active Family history of Hypertension (V17.49) Status: Active Family history of Asthma (V17.5) Status: Active Mother Family history of Dementia Status: Active Sister Family history of Thyroid Disorder (V18.19) Status: Active Grandfather Family history of Asthma (V17.5) Status: Active Social History - Smoking Status Never smoker Plan of Treatment Planned Observations Planned Goals not documented Results No Known Results Results not documented
--- NOTE | 2019-06-14 08:15 | Emergency Department Note ---
ED Visit Note I assisted attending Dr. Beverly in the care of this patient. Please see attending's note for details of the visit. Keren Holland MD Executive Assistant PGY-3 . Resident Activity Tracking Resident Involvement: Resident Care Provided Care Provided: Adult ED : GI (gastrointestinal bleed) Qualifiers: GI bleed type/associated pathology: unspecified gastrointestinal hemorrhage type Qualified Code(s): K92.2 - Gastrointestinal hemorrhage, unspecified Knee pain, left Qualifiers: Chronicity: acute Qualified Code(s): M25.562 - Pain in left knee
[2019-06-14 08:22] LABS: Basophils # (auto) 0.03 K/uL (0-0.2); Basophils % (auto) 0.4 %; Eosinophils # (auto) 0.16 K/uL (0-0.5); Eosinophils % (auto) 2.1 %; Hematocrit (blood only) 39.7 % (37-47); Hemoglobin 13.2 g/dL (12.0-16.0); Immature Granulocytes # (auto) 0.01 K/uL (0.00-0.02); Immature Granulocytes % (auto) 0.1 %; Lymphocytes # (auto) 1.94 K/uL (1.2-3.4); Lymphocytes % (auto) 25.6 %; Mean Corpuscular Hgb Conc 33.2 g/dL (32-36); Mean Corpuscular Volume 90.4 fL (80-100); Mean Platelet Volume 10.8 fL (7.4-10.4); Monocytes # (auto) 0.69 K/uL (0.11-0.59); Monocytes % (auto) 9.1 %; Neutrophils # (auto) 4.74 K/uL (1.4-6.5); Neutrophils % (auto) 62.7 %; Platelet Count 209 K/uL (130-400); RDW Coefficient of Variation 13.2 % (11.5-14.5); RDW Standard Deviation 43.9 fL (36.4-46.3); Red Blood Count 4.39 M/uL (4.2-5.4); White Blood Count 7.57 K/uL (4.8-10.8)
[2019-06-14] MEDS ORDERED: PANTOprazole 80 MG in DEXTROSE 5% 100 ML IV SCH (08:30)
[2019-06-14 08:33] LABS: INR 1.1 (0.9-1.1); Partial Thromboplastin Ratio 0.9; Prothrombin Time 10.9 Seconds (9.0-12.0)
--- NOTE | 2019-06-14 08:33 | XRay Report ---
XR chest 1V portable HISTORY: 78 years-old Female lightheaded COMPARISON: Chest radiograph 04/30/2013 TECHNIQUE: Portable AP view of the chest FINDINGS: Cardiac silhouette is enlarged, unchanged. Chronic ill-defined opacity of the lateral left lung base suggestive of atelectasis/scarring or prominent epicardial fat pad. Calcified plaque of the thoracic aortic arch. No pneumothorax, large pleural effusion, overt pulmonary edema or lobar airspace consoli dation. Degenerative changes of the shoulders and spine. IMPRESSION: Cardiomegaly without acute process. The above report was generated using voice recognition software. It may contain grammatical, syntax o r spelling errors. Electronically signed by: Ras Dahl M.D. 06/14/2019 8:32 AM
[2019-06-14 08:40] LABS: Albumin Level 3.6 gm/dl (3.4-5.0); BUN Creatinine Ratio 20.7 (10-20); Calcium 9.2 mg/dl (8.5-10.1); Creatinine Clr Calc Pharmacy 72.9 ml/min; Est GFR (African American) 91.7; Est GFR (Non-African American) 79.1; Potassium 3.9 mmol/L (3.5-5.1)
[2019-06-14 08:45] LABS: Albumin Globulin Ratio 1.1 (0.9-2); Bilirubin,Total 0.4 mg/dl (0.2-1); Globulin 3.1 gm/dl (2.5-4.0); Total Protein 6.7 gm/dl (6.4-8.2); Troponin I 0.016 ng/ml (0-0.045)
[2019-06-14] MEDS ORDERED: IOVERSOL 100ml IV PRN (08:55)
--- NOTE | 2019-06-14 08:55 | XRay Report ---
XR knee LT 3V CLINICAL HISTORY: pain TRAUMA COMPARISON: None DISCUSSION: There are postsurgical changes of a total left knee arthroplasty and patellar resurfacing . No fractures or dislocations are visualized. IMPRESSION: Total left knee arthroplasty. No fractures or dislocations identified. Electronically signed by: Shady Sanchez M.D. 06/14/2019 8:54 AM
--- NOTE | 2019-06-14 09:10 | CT Scan Report ---
CT abd pelvis IV con only CLINICAL HISTORY: GIB GASTROINTESTINAL BLEEDING, ABDOMINAL PAIN COMPARISON STUDY: 06/24/2017 TECHNIQUE: The patient was scanned in a dynamic helical fashion during intravenous administration of 93 cc of Optiray 320. A dose lowering technique was utilized adhering to the principles of ALARA. CT DOSE: 1235.36 mGy.cm FINDINGS: Lower chest: There are basilar atelectatic changes. Liver: There is hepatic steatosis. No focal masses are visualized. The portal vein is patent. Gallbladder: Not visualized and presumed surgically absent Spleen: Normal in size and attenuation. Pancreas: Unremarkable. Adrenal glands: Unremarkable. Kidneys: There is symmetric renal cortical enhancement. The kidneys are normal in size without hydron ephrosis. Bowel: There are no transition zones indicate bowel obstruction. There is extensive pancolonic divert iculosis. No acute peridiverticular inflammatory changes are visualized. The appendix appears normal Peritoneum: There is no intraperitoneal free air or abdominal ascites. There is a small fat-containin g umbilical hernia. 2 additional lower abdominal ventral hernias are visualized. A small bowel loop p rotrudes into the base of 1 hernias. There are no current obstructive changes. Vasculature: The abdominal aorta is normal in course and caliber. Adenopathy: None. Pelvic viscera: The uterus is surgically absent Skeletal structures: No destructive osseous lesions are seen. IMPRESSION: 1. No evidence of bowel obstruction. No evidence of free air 2. Severe nguyen colonic diverticulosis. No evidence of acute diverticulitis 3. Normal appendix 4. Multiple small ventral hernias. Electronically signed by: Shady Sanchez M.D. 06/14/2019 9:09 AM
--- NOTE | 2019-06-14 10:01 | Emergency Department Note ---
Entered by Leah Orta acting as a scribe for Kade Beverly M.D. History of Present Illness General Chief complaint: Rectal Bleed Time Seen by Provider: 06/14/19 07:54 Source: patient History of Present Illness Provider complaint: rectal bleeding Onset (ago): day(s) 1 Pain Consistency: + other (persistent) Relieved By: + none Exacerbated By: + none Associated symptoms: + headaches and + other (+abdominal pain, +lightheaded, - blurred vision); no chest pain and no shortness of breath The patient is a 78 year old female who presents to the Emergency Room with complaints of rectal bleeding. The patient states that she has an episode of rectal bleeding that started yesterday morning. She reports that she has no episodes throughout the day and then returned at 2200 yesterday. She notes that she has had episodes of rectal bleeding every hour since then. She notes that that her stool is maroon color and not red. She notes that she has right ab dominal pain that radiates to her back. She states that she has a headache and is lightheaded. The patient denies any chest pain, shortness of breath, or blurred vision. She notes that she took vitamin K and Protonix. She notes that she has a history of ulcers and diverticulitis. Home Medications Home Medications Medication Instructions Recorded Confirmed Type Lactobacillus acidophilus 100 mmu cells PO TIDM 06/14/19 06/14/19 History [Probiotic Acidophilus] albuterol sulfate 2 puff INHALATION Q4H PRN 06/14/19 06/14/19 History albuterol sulfate 2.5 mg INHALATION Q4H PRN 06/14/19 06/14/19 History benzonatate 100 mg PO TID PRN 06/14/19 06/14/19 History cetirizine 10 mg PO DAILY 06/14/19 06/14/19 History cholecalciferol (vitamin D3) 2,000 unit PO DAILY 06/14/19 06/14/19 History [Vitamin D3] coenzyme Q10 [CoQ-10] 600 mg PO DAILY 06/14/19 06/14/19 History conjugated estrogens 0.625 mg VAGINAL DAILY 06/14/19 06/14/19 History diclofenac sodium 75 mg PO BID 06/14/19 06/14/19 History epinephrine 0.3 mg IM Q3H PRN 06/14/19 06/14/19 History fluticasone furoate-vilanterol 1 inh INHALATION DAILY 06/14/19 06/14/19 History fluticasone propionate 1 puff INHALATION BID 06/14/19 06/14/19 History fluticasone propionate 2 spray INTRANASAL DAILY 06/14/19 06/14/19 History furosemide 20 mg PO DAILY 06/14/19 06/14/19 History grape seed extract 150 mg PO DAILY 06/14/19 06/14/19 History hydrochlorothiazide 12.5 mg PO DAILY 06/14/19 06/14/19 History insulin aspart U-100 [Novolog 20 unit SUBCUT TID 06/14/19 06/14/19 History U-100 Insulin aspart] insulin glargine [Lantus U-100 20 unit SUBCUT HS 06/14/19 06/14/19 History Insulin] losartan 50 mg PO DAILY 06/14/19 06/14/19 History multivitamin 1 tab PO DAILY 06/14/19 06/14/19 History nystatin 1 applic TOPICAL TID 06/14/19 06/14/19 History omeprazole 40 mg PO BID 06/14/19 06/14/19 History potassium chloride 10 meq PO DAILY 06/14/19 06/14/19 History propylene glycol [Systane Balance] 1 drp OPHTHALMIC (EYE) QID 06/14/19 06/14/19 History pseudoephedrine-guaifenesin 1 tab PO Q12H PRN 06/14/19 06/14/19 History [Mucinex D Maximum Strength] simvastatin 10 mg PO DAILY 06/14/19 06/14/19 History tiotropium bromide [Spiriva 2 puff INHALATION DAILY 06/14/19 06/14/19 History Respimat] verapamil 180 mg PO BID 06/14/19 06/14/19 History Allergies Allergy/AdvReac Type Severity Reaction Status Date / Time chicken derived Allergy Severe ANAPHYLAXIS Verified 06/14/19 09:54 Poultry Allergy Severe ANAPHYLAXIS Verified 06/14/19 09:54 propofol Allergy Severe R/T EGG Verified 06/14/19 09:54 ALLERGY - ANAPHYLAXIS Bactrim Allergy Intermediate HIVES Verified 10/16/17 09:45 Sulfa (Sulfonamide Allergy Intermediate HIVES Verified 06/14/19 09:54 Antibiotics) sulfamethoxazole Allergy Intermediate HIVES Verified 06/14/19 09:54 trimethoprim Allergy Intermediate HIVES Verified 06/14/19 09:54 amoxicillin Allergy Unknown ? Verified 06/14/19 09:54 aspirin Allergy Unknown GI BLEED Unverified 06/14/19 09:54 clavulanic acid Allergy Unknown ? Verified 06/14/19 09:54 egg Allergy Unknown ANAPHYLAXIS Verified 06/14/19 09:54 influenza virus vaccine, Allergy Unknown ANAPHYLAXIS Verified 06/14/19 09:54 specific lisinopril Allergy Unknown COUGH Unverified 06/14/19 09:54 nizatidine Allergy Unknown ? Verified 06/14/19 09:54 pioglitazone Allergy Unknown SWELLING Verified 06/14/19 09:54 metformin AdvReac Unknown DIARRHEA Verified 06/14/19 09:54 EGGS Allergy Unknown ANAPHYLAXIS Uncoded 06/14/19 09:54 MONTELUKAST SODIUM Allergy Unknown PRESSURE Uncoded 06/14/19 09:54 IN HEAD, EARS, MOUTH DRYNESS, NAUSEA, SKIN HURTS Past Med/Surg History Medical History Diverticulosis (Chronic) HTN (hypertension) (Chronic) HLD (hyperlipidemia) (Chronic) Asthma (Chronic) Diabetes mellitus, type II (Chronic) Paroxysmal atrial fibrillation (Chronic) HOFFMAN (nonalcoholic steatohepatitis) (Chronic) GERD (gastroesophageal reflux disease) (Chronic) Diverticulitis (Acute) Surgical History H/O: hysterectomy (Chronic) History of arthroplasty of left knee (Chronic) Hx of cholecystectomy (Chronic) Family History Other Hypertension Social History Preferred Language: Occitan Communication Ability: Effective Beliefs That Will Affect Care: None marital status: / Current Living Situation: Alone Other Information That Helps Us Care for You: No Feels Safe at Home: Yes Safety Concerns: Feels Safe At This Time Smoking Status: Never smoker Hx Alcohol Use: No Hx Substance Use: No Review of Systems See HPI for pertinent positives & negatives. and A total of 10 systems reviewed and were otherwise negative Physical Exam Vital Signs Vital Signs - 24 hr 06/14/19 07:55 06/14/19 08:33 06/14/19 09:16 Temperature 36.8 C Temperature Source Oral Sepsis Recent Fever Within 48 Hours No Sepsis New/Unexplained Change in Mental Status No Sepsis Action Taken by Nursing No Action Required Pulse Rate 93 H Pulse Rate [Finger] 79 73 Respiratory Rate 18 18 18 Respiratory Effort / Characteristics Non-Labored Non-Labored Non-Labored Respiratory Depth Normal Normal Normal Blood Pressure 197/89 H Blood Pressure [Left Arm] 172/83 H 157/79 H Blood Pressure Mean 125 Blood Pressure Mean [Left Arm] 112 105 Pulse Oximetry 92 94 96 Oxygen Delivery Method Room Air Room Air Nasal Cannula Oxygen Flow Rate 2 06/14/19 10:00 Temperature Temperature Source Sepsis Recent Fever Within 48 Hours Sepsis New/Unexplained Change in Mental Status Sepsis Action Taken by Nursing Pulse Rate Pulse Rate [Finger] 76 Respiratory Rate 16 Respiratory Effort / Characteristics Non-Labored Respiratory Depth Normal Blood Pressure Blood Pressure [Left Arm] 166/86 H Blood Pressure Mean Blood Pressure Mean [Left Arm] 112 Pulse Oximetry 97 Oxygen Delivery Method Nasal Cannula Oxygen Flow Rate 2 GENERAL: Awake, alert, well-appearing, in no distress HENT: Normocephalic, atraumatic. Oropharynx unremarkable. EYES: Normal conjunctiva. Sclera non-icteric. NECK: Supple. No nuchal rigidity. RESPIRATORY: Clear to auscultation. No wheezes. Normal respiratory effort. CARDIAC: Normal rate. Normal rhythm. Extremities warm and well perfused. GI: Soft, non-distended. Mild right sided abdominal tenderness to palpation. No rebound or guarding. No masses. RECTAL: Deferred. MUSCULOSKELETAL: Atraumatic. Chest examination reveals no tenderness. There is no CVA tenderness to palpation. LOWER EXTREMITIES: Calves are equal size bilaterally and non-tender. Left leg 1+ edema. Slight distally left knee tenderness. NEURO: Normal sensorium. No sensory or motor deficits noted. No facial droop. SKIN: Warm and dry. No rash or jaundice noted. Course 0756: The patient was seen and evaluated by the Resident Physician, Dr. Keren Holland, at this time. History and physical were discussed with me. 0829: The patient was evaluated in room A3, and a complete history and physical examination were performed. 1005: I reviewed the patient's case with Dr. Zunilda Reza. She will evaluate the patient for further management. Consultations Consultation #1: Dr. Zunilda Reza Time: 10:05 Administered Medications Artificial Tears (Artificial Tears) 1 drops OP QID [facility] Stop: 07/14/19 12:59 Last Admin: 06/14/19 13:34 Dose: 1 drops Documented by: [id number] Insulin Aspart (Novolog Flexpen) 0 units SC ACHS [facility] Stop: 07/14/19 16:29 Last Admin: 06/14/19 13:32 Dose: 1 units Documented by: [id number] Cosigned by: [id number] Nystatin (Nystatin) 1 appln EXT TID [facility] Stop: 07/14/19 13:59 Last Admin: 06/14/19 13:37 Dose: Not Given Documented by: [id number] Discontinued Medications Pantoprazole Sodium 80 mg/ (Dextrose) 120 mls @ 480 mls/hr IV TODAY@0830 [facility] Stop: 06/14/19 08:44 Last Infusion: 06/14/19 09:04 Dose: 0 mls/hr Documented by: [id number] Admin: 06/14/19 08:38 Dose: 480 mls/hr Documented by: [id number] Ioversol (Optiray 320 100ml) 93 ml IV ONCE PRN PRN Reason: Interaction Checking Stop: 06/18/19 08:54 Last Admin: 06/14/19 08:56 Dose: 93 ml Documented by: [id number] Medical Decision Making Differential Diagnosis Differential diagnosis: Etiologies such as appendicitis, diverticulitis, PUD, biliary pathology, UTI, pancreatitis, obstruction, mesenteric ischemia, aortic pathology, infections, inflammatory bowel disease, renal colic, as well as oth ers were entertained. Medical Records Attestation: I reviewed the patient's medical records. Home Medications Current Medication List: was personally reviewed by me Laboratory Data Attestation: I reviewed the patient's lab results. Result diagrams: 06/14/19 07:50 06/14/19 07:50 Lab Results 06/14/19 06/14/19 06/14/19 Range/Units 07:50 07:50 07:50 WBC 7.57 (4.8-10.8) K/uL RBC 4.39 (4.2-5.4) M/uL Hgb 13.2 (12.0-16.0) g/dL Hct 39.7 (37-47) % MCV 90.4 (80-100) fL MCH 30.1 (25-34) pg MCHC 33.2 (32-36) g/dL RDW Std Deviation 43.9 (36.4-46.3) fL RDW Coeff of Neena 13.2 (11.5-14.5) % Plt Count 209 (130-400) K/uL MPV 10.8 H (7.4-10.4) fL Immature Gran % (Auto) 0.1 % Neut % (Auto) 62.7 % Lymph % (Auto) 25.6 % Emmons % (Auto) 9.1 % Eos % (Auto) 2.1 % Baso % (Auto) 0.4 % Immature Gran # (Auto) 0.01 (0.00-0.02) K/uL Neut # (Auto) 4.74 (1.4-6.5) K/uL Lymph # (Auto) 1.94 (1.2-3.4) K/uL Emmons # (Auto) 0.69 H (0.11-0.59) K/uL Eos # (Auto) 0.16 (0-0.5) K/uL Baso # (Auto) 0.03 (0-0.2) K/uL PT 10.9 (9.0-12.0) Seconds INR 1.1 (0.9-1.1) APTT 25.0 (21.0-31.0) Seconds PTT Ratio 0.9 Sodium (136-145) mmol/L Potassium (3.5-5.1) mmol/L Chloride (98-107) mmol/L Carbon Dioxide (21-32) mmol/L Anion Gap (3-11) BUN (7-18) mg/dl Creatinine (0.6-1.2) mg/dl Est Cr Clr Drug Dosing ml/min Est GFR ( Amer) Est GFR (Non-Af Amer) BUN/Creatinine Ratio (10-20) Glucose (70-99) mg/dl Calcium (8.5-10.1) mg/dl Total Bilirubin (0.2-1) mg/dl AST (15-37) U/L ALT (12-78) U/L Alkaline Phosphatase (45-117) U/L Troponin I Cancelled Total Protein (6.4-8.2) gm/dl Albumin (3.4-5.0) gm/dl Globulin (2.5-4.0) gm/dl Albumin/Globulin Ratio (0.9-2) Lipase Cancelled POC Stool Occult Blood (Negative) Blood Type Antibody Screen 06/14/19 06/14/19 06/14/19 Range/Units 07:50 08:20 08:22 WBC (4.8-10.8) K/uL RBC (4.2-5.4) M/uL Hgb (12.0-16.0) g/dL Hct (37-47) % MCV (80-100) fL MCH (25-34) pg MCHC (32-36) g/dL RDW Std Deviation (36.4-46.3) fL RDW Coeff of Neena (11.5-14.5) % Plt Count (130-400) K/uL MPV (7.4-10.4) fL Immature Gran % (Auto) % Neut % (Auto) % Lymph % (Auto) % Emmons % (Auto) % Eos % (Auto) % Baso % (Auto) % Immature Gran # (Auto) (0.00-0.02) K/uL Neut # (Auto) (1.4-6.5) K/uL Lymph # (Auto) (1.2-3.4) K/uL Emmons # (Auto) (0.11-0.59) K/uL Eos # (Auto) (0-0.5) K/uL Baso # (Auto) (0-0.2) K/uL PT (9.0-12.0) Seconds INR (0.9-1.1) APTT (21.0-31.0) Seconds PTT Ratio Sodium 139 (136-145) mmol/L Potassium 3.9 (3.5-5.1) mmol/L Chloride 104 (98-107) mmol/L Carbon Dioxide 26 (21-32) mmol/L Anion Gap 9.0 (3-11) BUN 15 (7-18) mg/dl Creatinine 0.72 (0.6-1.2) mg/dl Est Cr Clr Drug Dosing 72.9 ml/min Est GFR ( Amer) 91.7 Est GFR (Non-Af Amer) 79.1 BUN/Creatinine Ratio 20.7 H (10-20) Glucose 211 H (70-99) mg/dl Calcium 9.2 (8.5-10.1) mg/dl Total Bilirubin 0.4 (0.2-1) mg/dl AST 23 (15-37) U/L ALT 46 (12-78) U/L Alkaline Phosphatase 71 (45-117) U/L Troponin I 0.016 Total Protein 6.7 (6.4-8.2) gm/dl Albumin 3.6 (3.4-5.0) gm/dl Globulin 3.1 (2.5-4.0) gm/dl Albumin/Globulin Ratio 1.1 (0.9-2) Lipase 93 POC Stool Occult Blood Positive A (Negative) Blood Type O Negative Antibody Screen NEGATIVE Imaging Data Radiologist's Impression: Radiology results as stated below per my review and the radiologist's interpretation: CT abd pelvis IV con only CLINICAL HISTORY: GIB GASTROINTESTINAL BLEEDING, ABDOMINAL PAIN COMPARISON STUDY: 06/24/2017 TECHNIQUE: The patient was scanned in a dynamic helical fashion during intravenous administration of 93 cc of Optiray 320. A dose lowering technique was utilized adhering to the principles of ALARA. CT DOSE: 1235.36 mGy.cm FINDINGS: Lower chest: There are basilar atelectatic changes. Liver: There is hepatic steatosis. No focal masses are visualized. The portal vein is patent. Gallbladder: Not visualized and presumed surgically absent Spleen: Normal in size and attenuation. Pancreas: Unremarkable. Adrenal glands: Unremarkable. Kidneys: There is symmetric renal cortical enhancement. The kidneys are normal in size without hydronephrosis. Bowel: There are no transition zones indicate bowel obstruction. There is extensive pancolonic diverticulosis. No acute peridiverticular inflammatory changes are visualized. The appendix appears normal Peritoneum: There is no intraperitoneal free air or abdominal ascites. There is a small fat-containing umbilical hernia. 2 additional lower abdominal ventral hernias are visualized. A small bowel loop protrudes into the base of 1 hernias. There are no current obstructive changes. Vasculature: The abdominal aorta is normal in course and caliber. Adenopathy: None. Pelvic viscera: The uterus is surgically absent Skeletal structures: No destructive osseous lesions are seen. IMPRESSION: 1. No evidence of bowel obstruction. No evidence of free air 2. Severe nguyen colonic diverticulosis. No evidence of acute diverticulitis 3. Normal appendix 4. Multiple small ventral hernias. Electronically signed by: Shady Sanchez M.D. 06/14/2019 9:09 AM XR chest 1V portable HISTORY: 78 years-old Female lightheaded COMPARISON: Chest radiograph 04/30/2013 TECHNIQUE: Portable AP view of the chest FINDINGS: Cardiac silhouette is enlarged, unchanged. Chronic ill-defined opacity of the lateral left lung base suggestive of atelectasis/scarring or prominent epicardial fat pad. Calcified plaque of the thoracic aortic arch. No pn eumothorax, large pleural effusion, overt pulmonary edema or lobar airspace consolidation. Degenerative changes of the shoulders and spine. IMPRESSION: Cardiomegaly without acute process. The above report was generated using voice recognition software. It may contain grammatical, syntax or spelling errors. Electronically signed by: Ras Dahl M.D. 06/14/2019 8:32 AM ECG Data Attestation: I personally reviewed and interpreted this ECG as follows: Indication: abdominal pain Rate (beats per minute): 76 Rhythm: sinus rhythm Findings: + other (normal interval ); no PVC, no ST depression and no ST elevation Blood Pressure Blood Pressure Findings: Elevated blood pressure MDM Narrative Patient is a 78-year-old female with a past medical history of diabetes, hypertension, asthma diverticulitis, GERD, gastric ulcer presenting today with complaint of rectal bleeding. Patient not currently maintained on anticoagulation or antiplatelet agents. Presents today via EMS and seen in conjunction with the resident. Patient had red blood per rectum starting yesterday and about every hour overnight. Little bit of right-sided pain. Has been taking some NSAIDs/Krista-Waite over the last several days. Took Protonix last night but not regularly. Mild right abdominal pain appreciated. Patient would little bit of generalized weakness lightheadedness. Also complains of some left knee pain after a fall several months ago. X-ray here did not show an acute process beyond the replacement. Does not appear grossly cellulitic. Doubt septic joint. Ultrasound was completed of this knee to exclude blood clot as well. EKG and troponin completed help exclude ACS as well as CT the abdomen pelvis to look for possible etiology of bleeding such as diverticulitis. Diverticulosis noted but there is no evidence of acute diverticulitis. Protonix bolus was ordered given her history of gastric ulceration and concern this could be an upper bleed. Given the frequency and persistence of this bleeding do believe that further management observation in the hospital is warranted. Patient in agreement. [facility] hospitalist contacted. Impression & Plan GI (gastrointestinal bleed), Weakness, Knee pain, left Discharge Plan Visit Data *Final* Discharge Date/Time: 06/14/19 10:44 Chief Complaint: Rectal Bleed ED Provider: Kade Beverly ED Midlevel Provider: Keren Holland Discharge Problem: GI (gastrointestinal bleed), Weakness, Knee pain, left Patient Disposition: Admitted As Inpatient Discharge Instructions Interventions: ED Discharge Assessment Last Done: 06/14/19 10:44 Discharge Problem: GI (gastrointestinal bleed) Qualifiers: GI bleed type/associated pathology: unspecified gastrointestinal hemorrhage type Qualified Code(s): K92.2 - Gastrointestinal hemorrhage, unspecified Knee pain, left Qualifiers: Chronicity: acute Qualified Code(s): M25.562 - Pain in left knee The scribe's documentation has been prepared under my direction and personally reviewed by me in its entirety. I confirm that the note above accurately reflects all work, treatment, procedures, and medical decision making performed by me.
--- NOTE | 2019-06-14 10:38 | History & Physical Report ---
Date of Service June 14, 2019 Assessment & Plan (1) GI (gastrointestinal bleed): This is an 78yo F with a PMH of diverticulosis, asthma, DM II, HTN, paroxysmal atrial fibrillation and other medical problems listed below who presents with rectal bleeding since yesterday morning. -History of diverticular bleeds in the past, superficial gastric ulcer in 2017 -Most recent endoscopy include colonoscopy [place] [address] Stallworth with two polyps, largest 5mm, severe diverticulosis, entire colon. EGD Jul 2017 Johnson's, one superficial gastric ulcer with clean base, hiatal hernia -This admission, endorsing 8 episodes of loose maroon stool starting yesterday with associated RLQ/side pain -Vitals stable, orthostatic vitals wnl, afebrile, initial hgb of 13.2. BUN/Cr normal -CT abd/pelvis without bowel obstruction. Severe nguyen colonic diverticulosis without diverticulitis. -Has been using NSAIDs 3x/week for left knee pain. Also prescribed diclofenac 75mg BID -Ddx: likely lower bleed with diverticular bleed vs internal hemorrhoids. Also considering upper GI bleed due to h/o gastric ulcer, however no N/V or upper abdominal pain -Hold NSAIDs. Routine GI consult. Clears for now. Per GI, plan for out-patient colonoscopy unless drastic change to H/H -H pylori and stool cx pending. No evidence of acute diverticulitis or colitis so no antibiotics at this time. -H&H recheck at 1500 (2) Knee pain, left: Left knee pain since a fall in March -Has been taking ibuprofen 2-3x weekly with some improvement of pain. Has some difficulty ambulating but states that it existed prior to knee pain -Left knee XR with total left knee arthroplasty. No fractures or dislocations identified -LLE Venous doppler study without sonographic evidence of deep venous thrombosis. Suggestion of an evolving subcutaneous hematoma about the prepatellar distribution -Avoid Nsaids. IV tylenol. -Routine ortho consult in setting of ongoing left knee pain with evidence of hematoma (3) Asthma: History of severe asthma, with expiratory wheezes throughout lung flores -At respiratory baseline. Will need pulm out-patient follow up to optimize regimen -Continue Duonebs QIDR, Breo and spiriva -Hesitant to start steroids in setting of GI bleeding -Supplemental O2, wean as tolerated. May require a 2 step prior to discharge (4) HTN (hypertension): Holding lasix and hctz in setting of GI bleed -Continue losartan (5) Diabetes mellitus, type II: A1c of 7.2 in Nov 2018. Repeat a1c -Hold home agents -Lantus and novalog sliding scale while in-patient -BSG AC HS (6) HLD (hyperlipidemia): Continue statin (7) Paroxysmal atrial fibrillation: Pulse of 84 currently -Continue verapamil (8) GERD (gastroesophageal reflux disease): Receiving IV protonix now. Transition back to PO PPI per GI DVT Ppx: SCDs Code status: FULL PCP: Tyler Dispo: Observation med tele. Plan to return home once medically stable. Patient seen in collaboration with Dr. Robb. Please see addendum. History of Present Illness Chief Complaint: rectal bleed Primary Care Provider: Eleni Scott MD This is an 78yo F with a PMH of diverticulosis, PUD, Johnson's esophagus, asthma, DM II, HTN, paroxysmal atrial fibrillation and other medical problems listed below who presents with rectal bleeding since yesterday morning. Had an episode of maroon loose stool yesterday morning and then not again until 2200 last night. Reports 7-8 episodes overnight that were runny, maroon colored with blood and clots in the toilet. No fever, chills, nausea, vomiting, hemetemesis or melena. Has been having associated R lower abdominal/flank aching pain since diarrhea began. Appetite unchanged. Endorses lightheadedness but denies dizziness, chest pain or increased SOB. Has some degree of dyspnea on exertion at baseline 2/2 asthma but denies using oxygen at home. Has history of diverticular bleeds in the past, most recently occurring in 2013. Most recent endoscopy includes colonoscopy [place] [address] Stallworth with two polyps, largest 5mm, severe diverticulosis, entire colon. EGD Jul 2017 Johnson's, one superficial gastric ulcer with clean base, hiatal hernia. Was recommended to stop aspirin/NSAID use at that time and take fiber supplement with resolution of lower abdominal discomfort. Has also been experiencing left knee pain ever since a fall in March. Has been taking ibuprofen 2-3x weekly with some improvement of pain. Has some difficulty ambulating but states that it existed prior to knee pain. In ED, patient is afebrile and hemodynamically stable. Hgb stable at 13.2. No leukocytosis. BUN and Cr within normal range. Electrolytes stable. CT abd/pelvis without bowel obstruction. Severe nguyen colonic diverticulosis without diverticulitis. Normal appendix. Allergies Allergy/AdvReac Type Severity Reaction Status Date / Time chicken derived Allergy Severe ANAPHYLAXIS Verified 06/14/19 09:54 Poultry Allergy Severe ANAPHYLAXIS Verified 06/14/19 09:54 propofol Allergy Severe R/T EGG Verified 06/14/19 09:54 ALLERGY - ANAPHYLAXIS Bactrim Allergy Intermediate HIVES Verified 10/16/17 09:45 Sulfa (Sulfonamide Allergy Intermediate HIVES Verified 06/14/19 09:54 Antibiotics) sulfamethoxazole Allergy Intermediate HIVES Verified 06/14/19 09:54 trimethoprim Allergy Intermediate HIVES Verified 06/14/19 09:54 amoxicillin Allergy Unknown ? Verified 06/14/19 09:54 aspirin Allergy Unknown GI BLEED Unverified 06/14/19 09:54 clavulanic acid Allergy Unknown ? Verified 06/14/19 09:54 egg Allergy Unknown ANAPHYLAXIS Verified 06/14/19 09:54 influenza virus vaccine, Allergy Unknown ANAPHYLAXIS Verified 06/14/19 09:54 specific lisinopril Allergy Unknown COUGH Unverified 06/14/19 09:54 nizatidine Allergy Unknown ? Verified 06/14/19 09:54 pioglitazone Allergy Unknown SWELLING Verified 06/14/19 09:54 metformin AdvReac Unknown DIARRHEA Verified 06/14/19 09:54 EGGS Allergy Unknown ANAPHYLAXIS Uncoded 06/14/19 09:54 MONTELUKAST SODIUM Allergy Unknown PRESSURE Uncoded 06/14/19 09:54 IN HEAD, EARS, MOUTH DRYNESS, NAUSEA, SKIN HURTS Home Medications Home Medications Medication Instructions Recorded Confirmed Type Lactobacillus acidophilus 100 mmu cells PO TIDM 06/14/19 06/14/19 History [Probiotic Acidophilus] albuterol sulfate 2 puff INHALATION Q4H PRN 06/14/19 06/14/19 History albuterol sulfate 2.5 mg INHALATION Q4H PRN 06/14/19 06/14/19 History benzonatate 100 mg PO TID PRN 06/14/19 06/14/19 History cetirizine 10 mg PO DAILY 06/14/19 06/14/19 History cholecalciferol (vitamin D3) 2,000 unit PO DAILY 06/14/19 06/14/19 History [Vitamin D3] coenzyme Q10 [CoQ-10] 600 mg PO DAILY 06/14/19 06/14/19 History conjugated estrogens 0.625 mg VAGINAL DAILY 06/14/19 06/14/19 History diclofenac sodium 75 mg PO BID 06/14/19 06/14/19 History epinephrine 0.3 mg IM Q3H PRN 06/14/19 06/14/19 History fluticasone furoate-vilanterol 1 inh INHALATION DAILY 06/14/19 06/14/19 History fluticasone propionate 1 puff INHALATION BID 06/14/19 06/14/19 History fluticasone propionate 2 spray INTRANASAL DAILY 06/14/19 06/14/19 History furosemide 20 mg PO DAILY 06/14/19 06/14/19 History grape seed extract 150 mg PO DAILY 06/14/19 06/14/19 History hydrochlorothiazide 12.5 mg PO DAILY 06/14/19 06/14/19 History insulin aspart U-100 [Novolog 20 unit SUBCUT TID 06/14/19 06/14/19 History U-100 Insulin aspart] insulin glargine [Lantus U-100 20 unit SUBCUT HS 06/14/19 06/14/19 History Insulin] losartan 50 mg PO DAILY 06/14/19 06/14/19 History multivitamin 1 tab PO DAILY 06/14/19 06/14/19 History nystatin 1 applic TOPICAL TID 06/14/19 06/14/19 History omeprazole 40 mg PO BID 06/14/19 06/14/19 History potassium chloride 10 meq PO DAILY 06/14/19 06/14/19 History propylene glycol [Systane Balance] 1 drp OPHTHALMIC (EYE) QID 06/14/19 06/14/19 History pseudoephedrine-guaifenesin 1 tab PO Q12H PRN 06/14/19 06/14/19 History [Mucinex D Maximum Strength] simvastatin 10 mg PO DAILY 06/14/19 06/14/19 History tiotropium bromide [Spiriva 2 puff INHALATION DAILY 06/14/19 06/14/19 History Respimat] verapamil 180 mg PO BID 06/14/19 06/14/19 History Past Med/Surg History Medical History Diverticulosis (Chronic) HTN (hypertension) (Chronic) HLD (hyperlipidemia) (Chronic) Asthma (Chronic) Diabetes mellitus, type II (Chronic) Paroxysmal atrial fibrillation (Chronic) HOFFMAN (nonalcoholic steatohepatitis) (Chronic) GERD (gastroesophageal reflux disease) (Chronic) Diverticulitis (Acute) Surgical History H/O: hysterectomy (Chronic) History of arthroplasty of left knee (Chronic) Hx of cholecystectomy (Chronic) Family History Other Hypertension Social History Preferred Language: Serbian Communication Ability: Effective Beliefs That Will Affect Care: None marital status: / Current Living Situation: Alone Other Information That Helps Us Care for You: No Feels Safe at Home: Yes Safety Concerns: Feels Safe At This Time Smoking Status: Never smoker Hx Alcohol Use: No Hx Substance Use: No Review of Systems Review of Systems: At least ten systems reviewed and negative except as noted in the HPI. Physical Exam Physical Exam: General Appearance: WD/WN, no apparent distress, resting comfortably Head: normocephalic, atraumatic Eyes: normal inspection, PERRL, EOMI ENT: hearing grossly normal, pharynx normal (moist mucous membranes) Neck: supple, no JVD, no adenopathy Respiratory/Chest: Decreased air movement bilaterally. Expiratory wheezing throughout lung flores. No rales or rhonchi. No respiratory distress or accessory muscle use. Cardiovascular: regular rate, rhythm, no murmur, normal peripheral pulses Abdomen/GI: normal bowel sounds, soft, non-tender to palpation but some tenderness to palpation of in R side/flank Extremities/Musculoskelatal: Left knee with effusion anterior to patella. Normal ROM but painful. Distal 1+ pitting edema and calf tenderness. Normal capillary refill Neurologic/Psych: alert, normal mood/affect, oriented x 3 Skin: normal color, warm/dry Results & Data Vital Signs (Past 12 Hours) Vital Signs Temp Pulse Pulse Resp BP BP Pulse Ox 06/14/19 10:00 76 16 166/86 H 97 06/14/19 09:16 73 18 157/79 H 96 06/14/19 08:33 79 18 172/83 H 94 06/14/19 07:55 36.8 C 93 H 18 197/89 H 92 Laboratory Results Short CBC 06/14/19 Range/Units 07:50 WBC 7.57 (4.8-10.8) K/uL Hgb 13.2 (12.0-16.0) g/dL Hct 39.7 (37-47) % Plt Count 209 (130-400) K/uL BMP 06/14/19 07:50 Sodium 139 Potassium 3.9 Chloride 104 Carbon Dioxide 26 BUN 15 Creatinine 0.72 Glucose 211 H Calcium 9.2 Cardiac Enzymes 06/14/19 06/14/19 Range/Units 07:50 07:50 Troponin I Cancelled 0.016 Liver Function 06/14/19 Range/Units 07:50 Total Bilirubin 0.4 (0.2-1) mg/dl AST 23 (15-37) U/L ALT 46 (12-78) U/L Alkaline Phosphatase 71 (45-117) U/L Albumin 3.6 (3.4-5.0) gm/dl Diagnostic Findings CXR: IMPRESSION: Cardiomegaly without acute process. CT abd/pelvis: IMPRESSION: 1. No evidence of bowel obstruction. No evidence of free air 2. Severe nguyen colonic diverticulosis. No evidence of acute diverticulitis 3. Normal appendix 4. Multiple small ventral hernias. Left knee XR: IMPRESSION: Total left knee arthroplasty. No fractures or dislocations identified. LLE Venous doppler study: IMPRESSION: 1. No sonographic evidence of deep venous thrombosis. 2. Suggestion of an evolving subcutaneous hematoma about the prepatellar distribution. Correlate clinically. Supervising Physician Co-Signing Physician Notes 78 yo F with h/o Johnson's esophagus and PUD with recent NSAID use (Krista- [place], Diclofenac, and Ibuprofen) presented with 7 episodes of bloody stools overnight. She has a h/o diverticular bleed in the past. She denies any abdominal pain to me, but reported some RLQ pain to other providers. She is not having issues with odynophagia, dysphagia, hematemesis or nausea and has been tolerating food without issue. She has persistent uncontrolled asthma and has required prednisone recently for exacerbations. She denies any coughing, h/o smoking or other respiratory symptoms. Workup revealed a normal H/H without coagulopathy. She is not on any other blood thinners. Exam revealed a hemodynamically stable and afebrile patient in no acute distress. Abdomen was nontender and nondistended, heart exam revealed evidence of S1/2 without murmurs. Mucous membranes were moist. Lung exam revealed mild expiratory wheezing to auscultation in all lung flores with good air movement. This did not provoke coughing. Skin was warm and dry without jaundice. Imaging reveals no acute intra-abdominal pathology. Assessment: (1) hematochezia, (2) dive rticulosis, (3) asthma, (4) subacute L patellar pain and hematoma in setting of prior TKA, (5) DMII, (6) obesity. Plan: agree with the assessment stated on H&P including continuation of Protonix drip, trend H/H, clear liquid diet and consult GI. Suspect LGI bleeding, but has risk factors for UGI bleed, also. No evidence of acute diverticulitis or colitis so no antibiotics at this time. Avoid blood thinners including those mentioned initially, use Tylenol for pain. Stool H pylori. Appreciate GI recs. Cont Duonebs at this time as patient states she is at her "baseline." This is poorly controlled and she may need further workup/treatment of this during this hospitalization. Hesitate to start steroids in setting of GI bleeding. She is on Breo and Spiriva at home. Recommended outpatient pulmonology consult. Will consult Ortho to evaluate her knee as she appears to have a non-resolving hematoma present that is causing her pain in the setting of a prior knee replacement. PT/OT consults, Tylenol for pain. DO Cezar (1) GI (gastrointestinal bleed) GI bleed type/associated pathology: unspecified gastrointestinal hemorrhage type Qualified Code(s): K92.2 - Gastrointestinal hemorrhage, unspecified (2) Knee pain, left Chronicity: acute Qualified Code(s): M25.562 - Pain in left knee
--- NOTE | 2019-06-14 11:30 | Ultrasound Report ---
US venous doppler LE LT HISTORY: 78 years-old Female swelling, pain acute pain and swelling of the left lower extremity COMPARISON: Duplex venous Doppler study 07/16/2015 TECHNIQUE: Multiple real time sonographic images of the left lower extremity deep venous structures w ere obtained assessing grayscale appearance, color and spectral flow FINDINGS: Normal flow, compressibility, phasicity and augmentation of the left lower extremity venous structure s. In the anterior knee distribution there is a complex collection about the subcutaneous tissues kayla suring up to 5.0 x 1.2 x 4.8 cm without internal flow. This demonstrates mixed echogenicity. IMPRESSION: 1. No sonographic evidence of deep venous thrombosis. 2. Suggestion of an evolving subcutaneous hematoma about the prepatellar distribution. Correlate clin ically. The above report was generated using voice recognition software. It may contain grammatical, syntax o r spelling errors. Electronically signed by: Ras Dahl M.D. 06/14/2019 11:29 AM
[2019-06-14] MEDS ORDERED: BENZONATATE 100 MG CAPSULE PO PRN (12:00)
[2019-06-14] MEDS ORDERED: ONDANSETRON INJ 2 MG/ML 2 ML VIAL IV PRN (12:00)
[2019-06-14] MEDS ORDERED: ALBUTEROL HFA 8 GM INHALER INH PRN (12:00)
[2019-06-14] MEDS ORDERED: guaiFENesin 600 MG TABCR PO PRN (12:21)
--- NOTE | 2019-06-14 12:21 | Gastrointestinal Consultation ---
Date of Consultation June 14, 2019 Assessment & Plan (1) Diverticulosis: Ms. Araujo's rectal bleeding likely represents a diverticular bleed (hx of pancolic diverticular disease, no BUN elevation and only mild discomfort). Other differentials considered include ischemic colitis (would expect a hypovolemic/hypotensive or syncopal event and increased pain). Clear liquids po. No plan for endoscopy during this admission as diverticular bleeds are typically self limited and doing colonoscopy does not change the outcome, though will consider colonoscopy if continued bleeding, dramatic drop in Hb/Hct. Her most recent colonoscopy was in 2013, so may consider an OP colonoscopy in a few mo nths. Present on Admission?: Yes (2) Rectal bleeding: Present on Admission?: Yes Supervising Physician Co-Signing Physician Notes On 06/14/19, I performed a history and physical examination of this patient and reviewed the electronic medical record. Specifically, on physical examination there is no significant abdominal tenderness. I have discussed the case with CHUCKIE Norton. The above note reflects my findings, conclusions, and recommendations. Román Petersen MD History of Present Illness Reason for Consultation: rectal bleeding Requesting Physician: Dr. Robb Attending Physician: Jessica Robb DO History of Present Illness Ms. Mehreen Araujo is an 78 yr old female pt of Dr. Scott with a hx of HTN, Obesity, DM-2, Johnson's, who presented to the ED today with reports of several maroon colored BMs yesterday and last night. She reports some mild RLQ abdominal burning but no significant abdominal pain. She felt a little lightheaded during the episodes of bloody diarrhea but no syncopal episodes and was feeling well prior to the initial rectal bleeding. On arrival, Hb 13, Hct 39, BUN 15, Cr 0.72, CT with IV contrast with severe diverticulosis, no other bowel abnormalities. Ms. Araujo's most recent endoscopy includes Colonoscopy 08/09/[address] Stallworth with two polyps, largest 5mm, severe diverticulosis, entire colon. EGD Jul 2017 Johnson's, one superficial gastric ulcer with clean base, hiatal hernia. Allergies Allergy/AdvReac Type Severity Reaction Status Date / Time chicken derived Allergy Severe ANAPHYLAXIS Verified 06/14/19 09:54 Poultry Allergy Severe ANAPHYLAXIS Verified 06/14/19 09:54 propofol Allergy Severe R/T EGG Verified 06/14/19 09:54 ALLERGY - ANAPHYLAXIS Bactrim Allergy Intermediate HIVES Verified 10/16/17 09:45 Sulfa (Sulfonamide Allergy Intermediate HIVES Verified 06/14/19 09:54 Antibiotics) sulfamethoxazole Allergy Intermediate HIVES Verified 06/14/19 09:54 trimethoprim Allergy Intermediate HIVES Verified 06/14/19 09:54 amoxicillin Allergy Unknown ? Verified 06/14/19 09:54 aspirin Allergy Unknown GI BLEED Unverified 06/14/19 09:54 clavulanic acid Allergy Unknown ? Verified 06/14/19 09:54 egg Allergy Unknown ANAPHYLAXIS Verified 06/14/19 09:54 influenza virus vaccine, Allergy Unknown ANAPHYLAXIS Verified 06/14/19 09:54 specific lisinopril Allergy Unknown COUGH Unverified 06/14/19 09:54 nizatidine Allergy Unknown ? Verified 06/14/19 09:54 pioglitazone Allergy Unknown SWELLING Verified 06/14/19 09:54 metformin AdvReac Unknown DIARRHEA Verified 06/14/19 09:54 EGGS Allergy Unknown ANAPHYLAXIS Uncoded 06/14/19 09:54 MONTELUKAST SODIUM Allergy Unknown PRESSURE Uncoded 06/14/19 09:54 IN HEAD, EARS, MOUTH DRYNESS, NAUSEA, SKIN HURTS Home Medications Home Medications Medication Instructions Recorded Confirmed Type Lactobacillus acidophilus 100 mmu cells PO TIDM 06/14/19 06/14/19 History [Probiotic Acidophilus] albuterol sulfate 2 puff INHALATION Q4H PRN 06/14/19 06/14/19 History albuterol sulfate 2.5 mg INHALATION Q4H PRN 06/14/19 06/14/19 History benzonatate 100 mg PO TID PRN 06/14/19 06/14/19 History cetirizine 10 mg PO DAILY 06/14/19 06/14/19 History cholecalciferol (vitamin D3) 2,000 unit PO DAILY 06/14/19 06/14/19 History [Vitamin D3] coenzyme Q10 [CoQ-10] 600 mg PO DAILY 06/14/19 06/14/19 History conjugated estrogens 0.625 mg VAGINAL DAILY 06/14/19 06/14/19 History diclofenac sodium 75 mg PO BID 06/14/19 06/14/19 History epinephrine 0.3 mg IM Q3H PRN 06/14/19 06/14/19 History fluticasone furoate-vilanterol 1 inh INHALATION DAILY 06/14/19 06/14/19 History fluticasone propionate 1 puff INHALATION BID 06/14/19 06/14/19 History fluticasone propionate 2 spray INTRANASAL DAILY 06/14/19 06/14/19 History furosemide 20 mg PO DAILY 06/14/19 06/14/19 History grape seed extract 150 mg PO DAILY 06/14/19 06/14/19 History hydrochlorothiazide 12.5 mg PO DAILY 06/14/19 06/14/19 History insulin aspart U-100 [Novolog 20 unit SUBCUT TID 06/14/19 06/14/19 History U-100 Insulin aspart] insulin glargine [Lantus U-100 20 unit SUBCUT HS 06/14/19 06/14/19 History Insulin] losartan 50 mg PO DAILY 06/14/19 06/14/19 History multivitamin 1 tab PO DAILY 06/14/19 06/14/19 History nystatin 1 applic TOPICAL TID 06/14/19 06/14/19 History omeprazole 40 mg PO BID 06/14/19 06/14/19 History potassium chloride 10 meq PO DAILY 06/14/19 06/14/19 History propylene glycol [Systane Balance] 1 drp OPHTHALMIC (EYE) QID 06/14/19 06/14/19 History pseudoephedrine-guaifenesin 1 tab PO Q12H PRN 06/14/19 06/14/19 History [Mucinex D Maximum Strength] simvastatin 10 mg PO DAILY 06/14/19 06/14/19 History tiotropium bromide [Spiriva 2 puff INHALATION DAILY 06/14/19 06/14/19 History Respimat] verapamil 180 mg PO BID 06/14/19 06/14/19 History Patient History Medical History Diverticulosis (Chronic) HTN (hypertension) (Chronic) HLD (hyperlipidemia) (Chronic) Asthma (Chronic) Diabetes mellitus, type II (Chronic) Paroxysmal atrial fibrillation (Chronic) HOFFMAN (nonalcoholic steatohepatitis) (Chronic) GERD (gastroesophageal reflux disease) (Chronic) Diverticulitis (Acute) Surgical History H/O: hysterectomy (Chronic) History of arthroplasty of left knee (Chronic) Hx of cholecystectomy (Chronic) Family History Other Hypertension Social History Preferred Language: Palauan Communication Ability: Effective Beliefs That Will Affect Care: None marital status: / Current Living Situation: Alone Other Information That Helps Us Care for You: No Feels Safe at Home: Yes Safety Concerns: Feels Safe At This Time Smoking Status: Never smoker Hx Alcohol Use: No Hx Substance Use: No Review of Systems Review of Systems: ROS: Gen: + brief lightheadedness last night, but overall, denies weakness, fevers, weight loss Eyes: No eye redness, or pain, no recent vision changes Resp: No SOB, no cough Cardio: No palpitations/irregular beats, no chest pain GI: See HPI : Denies pain on urination Skin: No jaundice, itching or new rashes Physical Exam Constitutional: WD/WN, vitals as above Eyes: PERRL, conjunctivae normal, anicteric sclerae ENMT: external ear and nose normal, oropharynx normal Neck: trachea midline, no thyromegaly Respiratory: normal respiratory effort, lungs clear to auscultation Cardiovascular: RRR, no murmur, no edema Gastrointestinal (Abdomen): Inspection/Auscultation: abdomen normal to inspection; abdomen not distended Percussion/Palpation: + abdomen tender (mild, RLQ) and abdomen soft Skin: no rashes, warm and dry Neurologic: PERRL, EOMI, accommodation nl, no face palsy, no dysarthria Psychiatric: A+Ox3, euthymic affect Lymphatic: no cervical or axillary lymphadenopathy Results & Data Vital Signs (Past 12 Hours) Vital Signs Temp Pulse Pulse Resp BP BP Pulse Ox 06/14/19 11:40 36.6 C 84 20 147/86 H 95 06/14/19 10:44 36.8 C 77 18 155/82 H 97 06/14/19 10:00 76 16 166/86 H 97 06/14/19 09:16 73 18 157/79 H 96 06/14/19 08:33 79 18 172/83 H 94 06/14/19 07:55 36.8 C 93 H 18 197/89 H 92 Laboratory Results Hb 13.2, INR 1.1, BUN [address] with IV contrast: 1. No evidence of bowel obstruction. No evidence of free air 2. Severe nguyen colonic diverticulosis. No evidence of acute diverticulitis 3. Normal appendix 4. Multiple small ventral hernias.
[2019-06-14] MEDS ORDERED: CARBOHYDRATES FOR HYPOGLYCEMIA PO PRN (12:57)
[2019-06-14] MEDS ORDERED: GLUCOSE 40% GEL 15 GM TUBE PO PRN (12:57)
[2019-06-14] MEDS ORDERED: GLUCOSE 10 TABS/TUBE PO PRN (12:57)
[2019-06-14] MEDS ORDERED: GLUCAGON FOR INJ 1 MG VIAL SQ PRN (12:57)
[2019-06-14] MEDS ORDERED: DEXTROSE 50% 50 ML SYRINGE IV PRN (12:57)
[2019-06-14] MEDS: INSULIN ASPART 100 UNITS/ML 3 ML PEN SC SCH ×3 (13:32→20:32)
[2019-06-14] MEDS: NYSTATIN CR 15 GM TUBE EXT SCH ×4 (13:34→20:35)
[2019-06-14] MEDS: ARTIFICIAL TEARS OP SCH ×3 (13:34→20:25)
[2019-06-14] MEDS ORDERED: ACETAMINOPHEN 1,000 MG/100 ML VIAL IV PRN (14:15)
--- NOTE | 2019-06-14 14:19 | Communication Note ---
Date of Service: June 14, 2019 78 yo F with h/o Johnson's esophagus and PUD with recent NSAID use (Krista- [place], Diclofenac, and Ibuprofen) presented with 7 episodes of bloody stools overnight. She has a h/o diverticular bleed in the past. She denies any abdominal pain to me, but reported some RLQ pain to other providers. She is not having issues with odynophagia, dysphagia, hematemesis or nausea and has been tolerating food without issue. She has persistent uncontrolled asthma and has required prednisone recently for exacerbations. She denies any coughing, h/o smoking or other respiratory symptoms. Workup revealed a normal H/H without coagulopathy. She is not on any other blood thinners. Exam revealed a hemodynamically stable and afebrile patient in no acute distress. Abdomen was nontender and nondistended, heart exam revealed evidence of S1/2 without murmurs. Mucous membranes were moist. Lung exam revealed mild expiratory wheezing to auscultation in all lung flores with good air movement. This did not provoke coughing. Skin was warm and dry without jaundice. Imaging reveals no acute intra-abdominal pathology. Assessment: (1) hematochezia, (2) divert iculosis, (3) asthma, (4) subacute L patellar pain and hematoma in setting of prior TKA, (5) DMII, (6) obesity. Plan: agree with the assessment stated on H&P including continuation of Protonix drip, trend H/H, clear liquid diet and consult GI. Suspect LGI bleeding, but has risk factors for UGI bleed, also. No evidence of acute diverticulitis or colitis so no antibiotics at this time. Avoid blood thinners including those mentioned initially, use Tylenol for pain. Stool H pylori. Appreciate GI recs. Cont Duonebs at this time as patient states she is at her "baseline." This is poorly controlled and she may need further workup/treatment of this during this hospitalization. Hesitate to start steroids in setting of GI bleeding. She is on Breo and Spiriva at home. Recommended outpatient pulmonology consult. Will consult Ortho to evaluate her knee as she appears to have a non-resolving hematoma present that is causing her pain in the setting of a prior knee replacement. PT/OT consults, Tylenol for pain. DO Cezar
[2019-06-14] MEDS: PANTOprazole 40 MG in DEXTROSE 5% 100 ML IV SCH ×2 (14:50→20:24)
[2019-06-14] MEDS: ALBUT/IPRATROP 3MG/0.5MG NEB 3 ML VIAL NEB SCH ×2 (15:13→19:02)
[2019-06-14 15:25] LABS: Hematocrit (blood only) 36.7 % (37-47); Hemoglobin 12.4 g/dL (12.0-16.0)
--- NOTE | 2019-06-14 18:35 | Orthopedic Consultation ---
Date of Consultation June 14, 2019 Assessment & Plan (1) Prepatellar bursitis of left knee: Chronic prepatellar bursitis left knee status post fall. Likely had a hematoma now with seroma. There is a small fluid collection and is not causing the diffuse swelling in the left leg which is related to venous stasis disease. Treatment could include aspiration injection of steroid. I discussed her at this point being diabetic and having medical complications now that probably not in her best interest to have a steroid injection and there is some risk of infection and recommend doing this as an outpatient if it does not resolve over time which it may. (2) Status post bilateral knee replacements: History bilateral knee replacements no radiographic loosening. She does have increased ligamentous laxity left knee. Sometimes this can cause synovitis and may be related to some increased swelling in the left lower extremity but most likely related to venous stasis disease left lower extremity greater than right. If ligamentous laxity is causing instability there are surgical options for that however this is likely been like this for some time now would recommend conservative management. Possibly consider a brace. History of Present Illness Attending Physician: Jessica Robb, 78-year-old female history of bilateral knee replacements by Dr. Estrada in the past. Has been recently getting some stiffness in her knees take NSAIDs and Krista-[place] for pain management. She feels her left leg swells more than her right. This was complicated by having a fall where she fell on both of her knees and onto her face in March of this summer. She developed area of swelling anterior left knee. Allergies Allergy/AdvReac Type Severity Reaction Status Date / Time chicken derived Allergy Severe ANAPHYLAXIS Verified 06/14/19 09:54 Poultry Allergy Severe ANAPHYLAXIS Verified 06/14/19 09:54 propofol Allergy Severe R/T EGG Verified 06/14/19 09:54 ALLERGY - ANAPHYLAXIS Bactrim Allergy Intermediate HIVES Verified 10/16/17 09:45 Sulfa (Sulfonamide Allergy Intermediate HIVES Verified 06/14/19 09:54 Antibiotics) sulfamethoxazole Allergy Intermediate HIVES Verified 06/14/19 09:54 trimethoprim Allergy Intermediate HIVES Verified 06/14/19 09:54 amoxicillin Allergy Unknown ? Verified 06/14/19 09:54 aspirin Allergy Unknown GI BLEED Unverified 06/14/19 09:54 clavulanic acid Allergy Unknown ? Verified 06/14/19 09:54 egg Allergy Unknown ANAPHYLAXIS Verified 06/14/19 09:54 influenza virus vaccine, Allergy Unknown ANAPHYLAXIS Verified 06/14/19 09:54 specific lisinopril Allergy Unknown COUGH Unverified 06/14/19 09:54 nizatidine Allergy Unknown ? Verified 06/14/19 09:54 pioglitazone Allergy Unknown SWELLING Verified 06/14/19 09:54 metformin AdvReac Unknown DIARRHEA Verified 06/14/19 09:54 EGGS Allergy Unknown ANAPHYLAXIS Uncoded 06/14/19 09:54 MONTELUKAST SODIUM Allergy Unknown PRESSURE Uncoded 06/14/19 09:54 IN HEAD, EARS, MOUTH DRYNESS, NAUSEA, SKIN HURTS Home Medications Home Medications Medication Instructions Recorded Confirmed Type Lactobacillus acidophilus 100 mmu cells PO TIDM 06/14/19 06/14/19 History [Probiotic Acidophilus] albuterol sulfate 2 puff INHALATION Q4H PRN 06/14/19 06/14/19 History albuterol sulfate 2.5 mg INHALATION Q4H PRN 06/14/19 06/14/19 History benzonatate 100 mg PO TID PRN 06/14/19 06/14/19 History cetirizine 10 mg PO DAILY 06/14/19 06/14/19 History cholecalciferol (vitamin D3) 2,000 unit PO DAILY 06/14/19 06/14/19 History [Vitamin D3] coenzyme Q10 [CoQ-10] 600 mg PO DAILY 06/14/19 06/14/19 History conjugated estrogens 0.625 mg VAGINAL DAILY 06/14/19 06/14/19 History diclofenac sodium 75 mg PO BID 06/14/19 06/14/19 History epinephrine 0.3 mg IM Q3H PRN 06/14/19 06/14/19 History fluticasone furoate-vilanterol 1 inh INHALATION DAILY 06/14/19 06/14/19 History fluticasone propionate 1 puff INHALATION BID 06/14/19 06/14/19 History fluticasone propionate 2 spray INTRANASAL DAILY 06/14/19 06/14/19 History furosemide 20 mg PO DAILY 06/14/19 06/14/19 History grape seed extract 150 mg PO DAILY 06/14/19 06/14/19 History hydrochlorothiazide 12.5 mg PO DAILY 06/14/19 06/14/19 History insulin aspart U-100 [Novolog 20 unit SUBCUT TID 06/14/19 06/14/19 History U-100 Insulin aspart] insulin glargine [Lantus U-100 20 unit SUBCUT HS 06/14/19 06/14/19 History Insulin] losartan 50 mg PO DAILY 06/14/19 06/14/19 History multivitamin 1 tab PO DAILY 06/14/19 06/14/19 History nystatin 1 applic TOPICAL TID 06/14/19 06/14/19 History omeprazole 40 mg PO BID 06/14/19 06/14/19 History potassium chloride 10 meq PO DAILY 06/14/19 06/14/19 History propylene glycol [Systane Balance] 1 drp OPHTHALMIC (EYE) QID 06/14/19 06/14/19 History pseudoephedrine-guaifenesin 1 tab PO Q12H PRN 06/14/19 06/14/19 History [Mucinex D Maximum Strength] simvastatin 10 mg PO DAILY 06/14/19 06/14/19 History tiotropium bromide [Spiriva 2 puff INHALATION DAILY 06/14/19 06/14/19 History Respimat] verapamil 180 mg PO BID 06/14/19 06/14/19 History Patient History Medical History Diverticulosis (Chronic) HTN (hypertension) (Chronic) HLD (hyperlipidemia) (Chronic) Asthma (Chronic) Diabetes mellitus, type II (Chronic) Paroxysmal atrial fibrillation (Chronic) HOFFMAN (nonalcoholic steatohepatitis) (Chronic) GERD (gastroesophageal reflux disease) (Chronic) Diverticulitis (Acute) Surgical History H/O: hysterectomy (Chronic) History of arthroplasty of left knee (Chronic) Hx of cholecystectomy (Chronic) Family History Other Hypertension Social History Preferred Language: Emirati Communication Ability: Effective Beliefs That Will Affect Care: None marital status: / Current Living Situation: Alone Other Information That Helps Us Care for You: No Feels Safe at Home: Yes Safety Concerns: Feels Safe At This Time Smoking Status: Never smoker Hx Alcohol Use: No Hx Substance Use: No Review of Systems Review of Systems: Patient had no symptoms that would suggest infection in either knee. Physical Exam Physical Exam: Obese female in no distress. Right knee no particular effusion she is good stability to varus valgus stress and range of motion 0 through least 100 degrees. Benign incision and she does have some edema in the right lower extremity with some pitting edema. Has about 2+ pitting edema. Her left knee she has more ligamentous laxity with varus valgus stress and there is clicking and some instability. The polyethylene post is stable the patella is central she has 0 through 95 degrees range of motion. There is a 2-1/2 to 3 cm diameter area of focal fluid collection in the prepatellar bursa and some chronic skin discolored skin change that would suggest she had a prepatellar bleed and hematoma and now likely seroma prepatellar bursitis chronic. There is to 3+ pitting edema left lower extremity with increased edema compared to the right lower extremity Results & Data Vital Signs (Past 12 Hours) Vital Signs Temp Pulse Pulse Resp BP BP Pulse Ox 06/14/19 15:31 36.6 C 72 18 138/84 97 06/14/19 15:14 77 16 98 06/14/19 11:40 36.6 C 84 20 147/86 H 95 06/14/19 10:44 36.8 C 77 18 155/82 H 97 06/14/19 10:00 76 16 166/86 H 97 06/14/19 09:16 73 18 157/79 H 96 06/14/19 08:33 79 18 172/83 H 94 06/14/19 07:55 36.8 C 93 H 18 197/89 H 92
[2019-06-14] MEDS: FLUTICASONE HFA 220 MCG INHALER INH SCH (20:30)
[2019-06-14] MEDS: INSULIN GLARGINE SOLOSTAR 100 UNITS/ML 3 ML PEN SC SCH (20:31)
[2019-06-14] MEDS: VERAPAMIL HCL 180 MG TABCR PO SCH (20:33)
[2019-06-15] MEDS: PANTOprazole 40 MG in DEXTROSE 5% 100 ML IV SCH ×2 (01:11→05:31)
[2019-06-15 06:31] LABS: Hematocrit (blood only) 35.5 % (37-47); Hemoglobin 11.5 g/dL (12.0-16.0); Mean Corpuscular Hgb Conc 32.4 g/dL (32-36); Mean Corpuscular Volume 91.7 fL (80-100); Mean Platelet Volume 10.4 fL (7.4-10.4); Platelet Count 182 K/uL (130-400); RDW Coefficient of Variation 13.4 % (11.5-14.5); RDW Standard Deviation 44.4 fL (36.4-46.3); Red Blood Count 3.87 M/uL (4.2-5.4); White Blood Count 6.46 K/uL (4.8-10.8)
[2019-06-15 06:49] LABS: Estimated Average Glucose 177 mg/dl; Hemoglobin A1C 7.8 % (4.5-5.6)
[2019-06-15 07:07] LABS: BUN Creatinine Ratio 13.7 (10-20); Calcium 8.2 mg/dl (8.5-10.1); Creatinine Clr Calc Pharmacy 70.4 ml/min; Est GFR (African American) 88.7; Est GFR (Non-African American) 76.5; Potassium 3.6 mmol/L (3.5-5.1)
[2019-06-15] MEDS: ALBUT/IPRATROP 3MG/0.5MG NEB 3 ML VIAL NEB SCH (07:14)
[2019-06-15] MEDS ORDERED: Nursing to Pharmacy Communication ONE ×2 (08:00→10:19)
[2019-06-15] MEDS: INSULIN ASPART 100 UNITS/ML 3 ML PEN SC SCH ×4 (08:05→20:45)
[2019-06-15] MEDS: CETIRIZINE HCL 10 MG TABLET PO SCH (08:11)
[2019-06-15] MEDS: POTASSIUM CHLORIDE 10 MEQ TABCR PO SCH (08:11)
[2019-06-15] MEDS: LOSARTAN POTASSIUM 50 MG TAB PO SCH (08:12)
[2019-06-15] MEDS: SIMVASTATIN 10 MG TAB PO SCH (08:13)
[2019-06-15] MEDS: LACTOBACILLUS ACIDOPHILUS (FLORANEX) TAB PO SCH (08:13)
[2019-06-15] MEDS: ARTIFICIAL TEARS OP SCH ×4 (08:14→20:20)
[2019-06-15] MEDS: VERAPAMIL HCL 180 MG TABCR PO SCH ×2 (08:15→20:21)
[2019-06-15] MEDS: FLUTICASONE PROPIONATE NA SPR 16 GM BTL NAE SCH (08:15)
[2019-06-15] MEDS: CHOLECALCIFEROL 1,000 UNITS TAB PO SCH (08:15)
[2019-06-15] MEDS: TIOTROPIUM BROMIDE 5 PUFF/90 MCG INH INH SCH (08:20)
[2019-06-15] MEDS: FLUTICASONE HFA 220 MCG INHALER INH SCH ×2 (08:22→20:21)
[2019-06-15] MEDS: NYSTATIN CR 15 GM TUBE EXT SCH ×3 (08:23→20:22)
[2019-06-15] MEDS: INSULIN GLARGINE SOLOSTAR 100 UNITS/ML 3 ML PEN SC SCH ×2 (08:26→20:45)
--- NOTE | 2019-06-15 08:31 | Hospitalist Progress Note ---
Date of Service June 15, 2019 Assessment & Plan (1) GI (gastrointestinal bleed): This is an 78yo F with a PMH of diverticulosis, asthma, DM II, HTN, paroxysmal atrial fibrillation and other medical problems listed below who presents with rectal bleeding Hematochezia and Diverticular GI bleed -History of diverticular bleeds in the past, superficial gastric ulcer in 2017 -Most recent endoscopy include colonoscopy [place] [address] Stallworth with two polyps, largest 5mm, severe diverticulosis, entire colon. EGD Jul 2017 Johnson's, one superficial gastric ulcer with clean base, hiatal hernia -patient also using NSAIDs at home for knee pain -as per GI evaluation this is likely a diverticular bleed, and does not appear to need emergent colonoscopy -Patient's hemoglobin so far on this presentation has trended down from 13 to 12.4 to 11.5 -at this time on 06/15/19 continue to monitor patient in the hospital, advance to clear liquid diet, transition from IV to oral pantoprazole, again to be NPO midnight in case there is drastic decline in hemoglobin that requires colonoscopy, patient has been counseled to avoid NSAIDs -further gastroenterology recommendations appreciated (2) Knee pain, left: Left knee pain secondary to prepatellar bursitis -Has been taking ibuprofen 2-3x weekly with some improvement of pain at home -Left knee XR with total left knee arthroplasty. No fractures or dislocations identified -LLE Venous doppler study without sonographic evidence of deep venous thrombosis. Suggestion of an evolving subcutaneous hematoma about the prepatellar distribution -as per orthopedics evaluation: Chronic prepatellar bursitis left knee status post fall. Likely had a hematoma now with seroma. There is a small fluid collection and is not causing the diffuse swelling in the left leg which is related to venous stasis disease. Treatment could include aspiration injection of steroid but because of diabetes mellitus and to avoid potential medical complications at this time, orthopedics does not advise steroid injection at this time -patient has been counseled to avoid NSAIDs History of bilateral knee replacements: -History bilateral knee replacements no radiographic loosening; does have increased ligamentous laxity left knee as per orthopedics and sometimes this can cause synovitis and may be related to some increased swelling in the left lower extremity but most likely related to venous stasis disease left lower extremity greater than right. If ligamentous laxity is causing instability there are surgical options for that however this is likely been like this for some time now would recommend conservative management -will place orthostatics consult for left knee brace. -PT/OT evaluations (3) Asthma: Asthma with acute exacerbation -as per admission H and P, patient had expiratory wheezes throughout lung flores -was started on Duonebs QIDR, Breo and Spiriva -breathing on room air currently, no wheezing on exam, switch nebulizer treatments from scheduled to prn (4) HTN (hypertension): -Continue losartan 50 mg daily -Blood pressure appears to be stable, will resume HCTZ 12.5 mg for blood pressure control and give potassium supplements -hold off home dose lasix for now, can resume if blood pressure continues to be stable or becomes elevated and/or if blood counts are stable (5) Diabetes mellitus, type II: Type 2 diabetes mellitus with group home current use of insulin HbA1c of 7.8 -Hold home dose insulin -Lantus scale and novalog sliding scale while in-patient are reduced dosing because of patient's gastrointestinal bleed workup and being on less than home caloric intake with liquid diet and intermittent NPO status (6) HLD (hyperlipidemia): Continue statin (7) Paroxysmal atrial fibrillation: -heart rate controlled -Continue verapamil (8) GERD (gastroesophageal reflux disease): switched from IV pantoprazole to oral pantoprazole DVT Ppx: SCDs Code status: FULL PCP: Tyler Subjective Patient reports that the last time of blood in the stools was yesterday night. Patient's hemoglobin so far on this presentation has trended down from 13 to 12.4 to 11.5. Patient denies vomiting. denies abdominal pain. denies problems with urination. denies shortness of breath. denies chest pain. no lightheadedness. no dizziness. at baseline, patient walks with cane. discussed with the patient of advancing to clear liquid diet. She is a diabetic patient on insulin. She has egg/poultry allergy. She is agreeable for further monitoring in the hospital given hemoglobin downtrend but because hemoglobin levels does not require blood transfusions today, she agrees to be again NPO after midnight in case any need for colonoscopy tomorrow Physical Exam Constitutional: WD/WN, vitals as above comfortable Eyes: PERRL, conjunctivae normal, anicteric sclerae EOM intact bilaterally ENMT: external ear and nose normal, oropharynx normal Neck: trachea midline, no thyromegaly normal visual inspection Respiratory: normal respiratory effort, lungs clear to auscultation Cardiovascular: RRR, no murmur, no edema Gastrointestinal (Abdomen): normal bowel sounds, soft, nontender, no hepatosplenomegaly Musculoskeletal: Head/Neck/Chest: normocephalic and head atraumatic knees with chronic bony deformities Neurologic: PERRL, EOMI, accommodation nl, no face palsy, no dysarthria CN's II-XI intact bilaterally Psychiatric: A+Ox3, euthymic affect Results & Data Vital Signs (Past 12 Hours) Vital Signs Temp Pulse Resp BP Pulse Ox 06/15/19 07:16 75 16 91 06/15/19 07:09 36.7 C 71 20 145/68 H 92 06/15/19 04:05 36.6 C 70 18 121/69 95 06/14/19 23:54 36.6 C 70 20 120/85 94 (1) GI (gastrointestinal bleed) GI bleed type/associated pathology: unspecified gastrointestinal hemorrhage type Qualified Code(s): K92.2 - Gastrointestinal hemorrhage, unspecified (2) Knee pain, left Chronicity: acute Qualified Code(s): M25.562 - Pain in left knee
[2019-06-15] MEDS ORDERED: POTASSIUM CHLORIDE 20 MEQ TABCR PO STA (08:46)
[2019-06-15] MEDS ORDERED: ALBUT/IPRATROP 3MG/0.5MG NEB 3 ML VIAL NEB PRN (08:49)
[2019-06-15] MEDS ORDERED: hydroCHLOROthiazide 25 MG TAB PO SCH (09:00)
[2019-06-15] MEDS ORDERED: TIOTROPIUM BROMIDE 5 PUFF/90 MCG INH INH SCH (09:00)
[2019-06-15] MEDS ORDERED: COENZYME Q10 600 MG PO SCH (09:00)
[2019-06-15] MEDS: PANTOprazole 40 MG TAB PO SCH (09:57)
[2019-06-15] MEDS: hydroCHLOROthiazide 25 MG TAB PO SCH (09:58)
--- NOTE | 2019-06-15 11:33 | Gastroenterology Progress Note ---
Date of Service June 15, 2019 Assessment & Plan (1) Diverticulosis: Ms. Araujo's rectal bleeding likely represents a diverticular bleed. (Hx of pancolic diverticular disease, no BUN elevation and only mild discomfort). Other differentials considered include ischemic colitis (would expect a hypovolemic/hypotensive or syncopal event and increased pain). Diet - advance to full liquids. No plan for endoscopy unless increased bleeding with dramatic drop in Hb/Hct. Her most recent colonoscopy was in 2013, so will set up for OP colonoscopy in a few months. Present on Admission?: Yes (2) Rectal bleeding: Supervising Physician Co-Signing Physician Notes I have performed a history and physical examination of this patient and reviewed the electronic medical record. Specifically, on physical examination there is mild lower abdominal tenderness. I have discussed the case with CHUCKIE Norton. The above note reflects my findings, conclusions, and recommendations. Román Petersen MD Subjective Ms. Mehreen Araujo is an 78 yr old female admitted yesterday for 2 days of dark red rectal bleeding. Hb 13.2->11.5 today. Today: - One large dark red BM. Pt states less blood then yesterday. - 5 of 10 RLQ abdomen pain, burning but pt tells me she always has some burning pain there since prior surgery. - Feels well, w/o CP, SOB. Able to walk in the halls. Review of Systems Review of Systems: ROS: Gen: Denies weakness, fevers, weight loss Eyes: No eye redness, or pain, no recent vision changes Resp: No SOB, no cough Cardio: No palpitations/irregular beats, no chest pain GI: No abdominal pain, no nausea/vomiting : Denies pain on urination Skin: No jaundice, itching or new rashes Physical Exam Constitutional: WD/WN, vitals as above Eyes: PERRL, conjunctivae normal, anicteric sclerae ENMT: external ear and nose normal, oropharynx normal Neck: trachea midline, no thyromegaly Respiratory: normal respiratory effort, lungs clear to auscultation Cardiovascular: RRR, no murmur, no edema Gastrointestinal (Abdomen): Inspection/Auscultation: abdomen normal to inspection; abdomen not distended Percussion/Palpation: + abdomen tender (mild, RLQ) and abdomen soft Skin: no rashes, warm and dry Neurologic: PERRL, EOMI, accommodation nl, no face palsy, no dysarthria Psychiatric: A+Ox3, euthymic affect Lymphatic: no cervical or axillary lymphadenopathy Results & Data Vital Signs (Past 12 Hours) Vital Signs Temp Pulse Pulse Resp BP Pulse Ox 06/15/19 08:00 71 06/15/19 07:16 75 16 91 06/15/19 07:09 36.7 C 71 20 145/68 H 92 06/15/19 04:05 36.6 C 70 18 121/69 95 06/14/19 23:54 36.6 C 70 20 120/85 94
[2019-06-15] MEDS ORDERED: INSULIN ASPART 100 UNITS/ML 3 ML PEN SC SCH (12:00)
[2019-06-16 07:11] LABS: Hematocrit (blood only) 34.1 % (37-47); Hemoglobin 11.2 g/dL (12.0-16.0); Mean Corpuscular Hgb Conc 32.8 g/dL (32-36); Mean Corpuscular Volume 91.9 fL (80-100); Mean Platelet Volume 10.7 fL (7.4-10.4); Platelet Count 186 K/uL (130-400); RDW Coefficient of Variation 13.4 % (11.5-14.5); RDW Standard Deviation 44.9 fL (36.4-46.3); Red Blood Count 3.71 M/uL (4.2-5.4); White Blood Count 6.87 K/uL (4.8-10.8)
[2019-06-16 07:41] LABS: BUN Creatinine Ratio 10.3 (10-20); Calcium 8.5 mg/dl (8.5-10.1); Creatinine Clr Calc Pharmacy 66.1 ml/min; Est GFR (African American) 83.2; Est GFR (Non-African American) 71.8; Potassium 3.7 mmol/L (3.5-5.1)
[2019-06-16] MEDS: VERAPAMIL HCL 180 MG TABCR PO SCH (08:17)
[2019-06-16] MEDS: FLUTICASONE HFA 220 MCG INHALER INH SCH (08:18)
[2019-06-16] MEDS: LOSARTAN POTASSIUM 50 MG TAB PO SCH (08:18)
[2019-06-16] MEDS: LACTOBACILLUS ACIDOPHILUS (FLORANEX) TAB PO SCH (08:18)
[2019-06-16] MEDS: FLUTICASONE PROPIONATE NA SPR 16 GM BTL NAE SCH (08:18)
[2019-06-16] MEDS: hydroCHLOROthiazide 25 MG TAB PO SCH (08:19)
[2019-06-16] MEDS: POTASSIUM CHLORIDE 10 MEQ TABCR PO SCH (08:19)
[2019-06-16] MEDS: PANTOprazole 40 MG TAB PO SCH (08:20)
[2019-06-16] MEDS: TIOTROPIUM BROMIDE 5 PUFF/90 MCG INH INH SCH (08:20)
[2019-06-16] MEDS: ARTIFICIAL TEARS OP SCH ×2 (08:22→12:15)
[2019-06-16] MEDS: CETIRIZINE HCL 10 MG TABLET PO SCH (08:23)
[2019-06-16] MEDS: SIMVASTATIN 10 MG TAB PO SCH (08:23)
[2019-06-16] MEDS: CHOLECALCIFEROL 1,000 UNITS TAB PO SCH (08:23)
[2019-06-16] MEDS: NYSTATIN CR 15 GM TUBE EXT SCH ×2 (08:24→15:14)
[2019-06-16] MEDS: INSULIN GLARGINE SOLOSTAR 100 UNITS/ML 3 ML PEN SC SCH (08:28)
[2019-06-16] MEDS: INSULIN ASPART 100 UNITS/ML 3 ML PEN SC SCH ×2 (09:07→12:14)
--- NOTE | 2019-06-16 09:41 | Gastroenterology Progress Note ---
Date of Service June 16, 2019 Assessment & Plan (1) Diverticulosis: Ms. Araujo's rectal bleeding likely represents a diverticular bleed. Bleeding seems to be slowing down, Hb stable. Diet - advance to low fiber. No GI contraindication to DC today. Colonoscopy is being arranged for 2 months because most recent colonoscopy was 5 yrs ago. (2) Rectal bleeding: Supervising Physician Co-Signing Physician Notes I have performed a history and physical examination of this patient and reviewed the electronic medical record. Specifically, on physical examination there is no abdominal tenderness. I have discussed the case with CHUCKIE Norton. The above note reflects my findings, conclusions, and recommendations. Román Petersen MD Subjective Ms. Mehreen Araujo is an 78 yr old female admitted 06/14, for rectal bleeding (dark red), though diverticular as she has a hx of nguyen-diverticulosis on C-scope in 2013. Hb 13.2->11.2 today. Today: - Two BMs, most recently one small soft, formed brown BM with a small amt of blood on toilet paper though BM prior to earlier this morning consisted of red/dark brown clots. - Mild RLQ abdomen burning discomfort - back to her baseline pain. - Feels well, tolerating full liquids po, denies w/o CP, SOB. Able to walk in the halls. Review of Systems Review of Systems: ROS: Gen: Denies weakness, fevers, weight loss Eyes: No eye redness, or pain, no recent vision changes Resp: No SOB, no cough Cardio: No palpitations/irregular beats, no chest pain GI: See HPI; no nausea/vomiting : Denies pain on urination Skin: No jaundice, itching or new rashes Physical Exam Constitutional: WD/WN, vitals as above Eyes: PERRL, conjunctivae normal, anicteric sclerae ENMT: external ear and nose normal, oropharynx normal Neck: trachea midline, no thyromegaly Respiratory: normal respiratory effort, lungs clear to auscultation Cardiovascular: RRR, no murmur, no edema Gastrointestinal (Abdomen): Inspection/Auscultation: abdomen normal to inspection; abdomen not distended Percussion/Palpation: + abdomen tender (mild, RLQ) and abdomen soft Skin: no rashes, warm and dry Neurologic: PERRL, EOMI, accommodation nl, no face palsy, no dysarthria Psychiatric: A+Ox3, euthymic affect Lymphatic: no cervical or axillary lymphadenopathy Results & Data Vital Signs (Past 12 Hours) Vital Signs Temp Pulse Pulse Resp BP BP Pulse Ox 06/16/19 07:08 36.8 C 63 17 123/73 90 06/16/19 03:29 36.7 C 72 20 117/68 92 06/16/19 01:00 75 06/15/19 23:55 36.8 C 74 18 109/63 93 Laboratory Results WBC 6, Hb 11.2, Hct 34.1, Platelets 186, Diagnostic Findings CT abd/pelvis 06/14/19: 1. No evidence of bowel obstruction. No evidence of free air 2. Severe nguyen colonic diverticulosis. No evidence of acute diverticulitis 3. Normal appendix 4. Multiple small ventral hernias.
--- NOTE | 2019-06-16 15:10 | Hospitalist Progress Note ---
Date of Service June 16, 2019 Assessment & Plan (1) Rectal bleeding: Presented with rectal bleeding. Hemoglobin at time of admission was 13.2 and fell as low as 11.2. CT demonstrated diverticulosis, no acute findings. Seen in consultation by Gastroenterology. Rectal bleeding attributed to diverticular bleed. Outpatient colonoscopy in about 2 months recommended and will be arranged by GI. (2) Paroxysmal atrial fibrillation: Currently normal sinus rhythm. Continue verapamil. No anticoagulants because recurrent GI bleeding. (3) HTN (hypertension): Continue losartan, verapamil, and hydrochlorothiazide. (4) Diabetes mellitus, type II: Hemoglobin A1c 7.8. Fasting blood sugar today = 164. Discharge on usual insulin regimen. Outpatient follow-up/titration of insulin therapy. (5) GERD (gastroesophageal reflux disease): Continue PPI. (6) DVT prophylaxis: Anticoagulants not utilized because of GI bleeding. SCDs ordered. Ambulating. (7) Discharge planning issues: Discharge to home. Family Medicine follow-up with Dr. Scott. Subjective Recheck for rectal bleeding. Doing well. Passing a few old clots, but no brisk bleeding. No nausea, vomiting, abdominal pain. No CP, SOB. Physical Exam Constitutional: no acute distress Respiratory: no respiratory distress Auscultation: lungs clear to auscultation bilaterally Cardiovascular: Rate/Rhythm: regular rate and regular rhythm Heart Sounds: no gallop, no murmur and no cardiac rub Vessels: no JVD Extremities: no calf tenderness and no edema Gastrointestinal (Abdomen): normal bowel sounds, soft, nontender, no hepatosplenomegaly Skin: no rashes, warm and dry Psychiatric: Orientation: alert and oriented x 3 Results & Data Vital Signs (Past 12 Hours) Vital Signs Temp Pulse Resp BP BP Pulse Ox 06/16/19 14:52 36.9 C 68 18 150/68 H 93 06/16/19 11:10 36.6 C 83 17 146/83 H 92 06/16/19 07:08 36.8 C 63 17 123/73 90 06/16/19 03:29 36.7 C 72 20 117/68 92
--- NOTE | 2019-06-18 04:31 | Discharge Summary ---
Date of Service Date of Admission: 06/14/19 Date of Discharge: 06/16/19 Admission HPI Per Admitting Provider This is an 78yo F with a PMH of diverticulosis, PUD, Johnson's esophagus, asthma, DM II, HTN, paroxysmal atrial fibrillation and other medical problems listed below who presents with rectal bleeding since yesterday morning. Had an episode of maroon loose stool yesterday morning and then not again until 2200 last night. Reports 7-8 episodes overnight that were runny, maroon colored with blood and clots in the toilet. No fever, chills, nausea, vomiting, hemetemesis or melena. Has been having associated R lower abdominal/flank aching pain since diarrhea began. Appetite unchanged. Endorses lightheadedness but denies dizziness, chest pain or increased SOB. Has some degree of dyspnea on exertion at baseline 2/2 asthma but denies using oxygen at home. Has history of diverti cular bleeds in the past, most recently occurring in 2013. Most recent endoscopy includes colonoscopy [place] [address] Stallworth with two polyps, largest 5mm, severe diverticulosis, entire colon. EGD Jul 2017 Johnson's, one superficial gastric ulcer with clean base, hiatal hernia. Was recommended to stop aspirin/NSAID use at that time and take fiber supplement with resolution of lower abdominal discomfort. Has also been experiencing left knee pain ever since a fall in March. Has been taking ibuprofen 2-3x weekly with some improvement of pain. Has some difficulty ambulating but states that it existed prior to knee pain. In ED, patient is afebrile and hemodynamically stable. Hgb stable at 13.2. No leukocytosis. BUN and Cr within normal range. Electrolytes stable. CT abd/pelvis without bowel obstruction. Severe nguyen colonic diverticulosis without diverticulitis. Normal appendix. Principal Diagnosis lower GI bleed, probably diverticular Discharge Data Allergies Allergy/AdvReac Type Severity Reaction Status Date / Time chicken derived Allergy Severe ANAPHYLAXIS Verified 06/14/19 09:54 Poultry Allergy Severe ANAPHYLAXIS Verified 06/14/19 09:54 propofol Allergy Severe R/T EGG Verified 06/14/19 09:54 ALLERGY - ANAPHYLAXIS Bactrim Allergy Intermediate HIVES Verified 10/16/17 09:45 Sulfa (Sulfonamide Allergy Intermediate HIVES Verified 06/14/19 09:54 Antibiotics) sulfamethoxazole Allergy Intermediate HIVES Verified 06/14/19 09:54 trimethoprim Allergy Intermediate HIVES Verified 06/14/19 09:54 amoxicillin Allergy Unknown ? Verified 06/14/19 09:54 aspirin Allergy Unknown GI BLEED Unverified 06/14/19 09:54 clavulanic acid Allergy Unknown ? Verified 06/14/19 09:54 egg Allergy Unknown ANAPHYLAXIS Verified 06/14/19 09:54 influenza virus vaccine, Allergy Unknown ANAPHYLAXIS Verified 06/14/19 09:54 specific lisinopril Allergy Unknown COUGH Unverified 06/14/19 09:54 nizatidine Allergy Unknown ? Verified 06/14/19 09:54 pioglitazone Allergy Unknown SWELLING Verified 06/14/19 09:54 metformin AdvReac Unknown DIARRHEA Verified 06/14/19 09:54 EGGS Allergy Unknown ANAPHYLAXIS Uncoded 06/14/19 09:54 MONTELUKAST SODIUM Allergy Unknown PRESSURE Uncoded 06/14/19 09:54 IN HEAD, EARS, MOUTH DRYNESS, NAUSEA, SKIN HURTS Consultations 06/14/19 10:08 ED Decision to Admit Stat 06/14/19 12:00 Consult Gastroenterology Routine 06/14/19 14:22 Consult Orthopedic Surgery Routine Ordered Studies 06/14/19 08:07 CT abd pelvis IV con only Stat 06/14/19 08:33 US venous doppler LE LT Stat Hospital Course (1) Rectal bleeding: Presented with rectal bleeding. Hemoglobin at time of admission was 13.2 and fell as low as 11.2. CT demonstrated diverticulosis, no acute findings. Seen in consultation by Gastroenterology. Rectal bleeding attributed to diverticular bleed. Advised to stop diclofenac because of antiplatelet effect. Outpatient colonoscopy in about 2 months recommended and will be arranged by GI. (2) Paroxysmal atrial fibrillation: Currently normal sinus rhythm. Continue verapamil. No anticoagulants because recurrent GI bleeding. (3) HTN (hypertension): Continue losartan, verapamil, and hydrochlorothiazide. (4) Diabetes mellitus, type II: Hemoglobin A1c 7.8. Fasting blood sugar day of discharge was 164. Discharge on usual insulin regimen. Outpatient follow-up/titration of insulin therapy. (5) GERD (gastroesophageal reflux disease): Continue PPI. (6) DVT prophylaxis: Anticoagulants not utilized because of GI bleeding. SCDs ordered. Ambulating. (7) Discharge planning issues: Discharge to home. Family Medicine follow-up with Dr. Scott. Total Time Total Time Spent Total Time Spent (In Minutes): 30 Discharge Plan Discharge Items Patient Disposition: Home - Self-Care Reason For Visit: rectal bleeding Discharge Diagnosis: rectal bleeding, probably from diverticulosis Condition: Good Discharge Goals: Decrease discomfort and Improve disease control Activity: Resume your previous activity Non-emergency contact: Primary Care Provider, Hospitalist and Brewery Representative Call non-emergency contact if: you have any medication questions and your symptoms worsen Follow-up/Referrals: Eleni Scott MD [Primary Care Provider] - (06/23/2019 1:00 PM Saira Cabrales MD (covering for Dr. Scott)) Diet: Carb Consistent or DM2 and Heart Healthy Diet Comment: low fiber diet for 2 weeks Addtl Provider Instructions: MEDICATION CHANGES: Anti-inflammatory medicines like diclofenac (Voltaren), ibuprofen (Advil or Motrin), naproxen (Aleve) can cause bleeding and should be avoided. May take acetaminophen (Extra Strength Tylenol) as needed for pain. SUMMARY OF TEST RESULTS: CT scan showed extensive diverticulosis of colon. X-ray of left knee did not show any fractures. Ultrasound of left leg did not show any blood clots in the veins. Hemoglobin A1C was 7.8. PENDING TEST RESULTS: none RECOMMENDATIONS FOR FOLLOW-UP: Colonoscopy recommended in about 2 months. Office should contact you with appointment. OTHER INSTRUCTIONS: Seek medical attention if you have: * temperature above 101 * chest pain or trouble breathing * abdominal pain, nausea, vomiting * diarrhea, dark stools or bloody stools * any unanswered questions or concerns Call 911 if symptoms are severe. Please take good care of yourself. Call if you have any questions or problems. You can reach a [facility] hospitalist on duty at [facility] 24 hours a day by calling [phone]. My cell # is [phone]. Prescriptions: New acetaminophen [Tylenol Extra Strength] 500 mg tablet 1,000 mg PO Q8H PRN (Reason: pain) Qty: 60 RF: 0 Continued multivitamin Tablet 1 tab PO DAILY RF: 0 losartan 50 mg Tablet 50 mg PO DAILY RF: 0 Lantus U-100 Insulin 100 unit/mL solution 20 unit subcut HS RF: 0 albuterol sulfate 2.5 mg /3 mL (0.083 %) solution for nebulization 2.5 mg inhalation Q4H PRN (Reason: Wheezing) RF: 0 cetirizine 10 mg Tablet 10 mg PO DAILY RF: 0 grape seed extract 50 mg Tablet 150 mg PO DAILY RF: 0 verapamil 180 mg Tablet Extended Release 180 mg PO BID RF: 0 potassium chloride 10 mEq Tablet Extended Release 10 meq PO DAILY RF: 0 omeprazole 40 mg Capsule,Delayed Release(Dr/Ec) 40 mg PO BID RF: 0 Mucinex D Maximum Strength 120-1,200 mg Tablet Extended Release 12 Hr 1 tab PO Q12H PRN (Reason: Cough) RF: 0 benzonatate 100 mg Capsule 100 mg PO TID PRN (Reason: Cough) RF: 0 Novolog U-100 Insulin aspart 100 unit/mL solution 20 unit subcut TID RF: 0 simvastatin 20 mg Tablet 10 mg PO DAILY RF: 0 conjugated estrogens 0.625 mg/gram Cream 0.625 mg VAGINAL DAILY RF: 0 nystatin 100,000 unit/gram Cream 1 applic TOPICAL TID RF: 0 hydrochlorothiazide 12.5 mg Capsule 12.5 mg PO DAILY RF: 0 fluticasone propionate 220 mcg/actuation Hfa Aerosol Inhaler 1 puff INHALATION BID RF: 0 furosemide 20 mg Tablet 20 mg PO DAILY RF: 0 epinephrine 0.3 mg/0.3 mL Auto-Injector 0.3 mg IM Q3H PRN (Reason: Allergic Reaction) RF: 0 albuterol sulfate 90 mcg/actuation Hfa Aerosol Inhaler 2 puff INHALATION Q4H PRN (Reason: Wheezing) RF: 0 fluticasone propionate 50 mcg/actuation Agency,Suspension 2 spray INTRANASAL DAILY RF: 0 coenzyme Q10 [CoQ-10] 100 mg Capsule 600 mg PO DAILY RF: 0 cholecalciferol (vitamin D3) [Vitamin D3] 2,000 unit Capsule 2,000 unit PO DAILY RF: 0 Systane Balance 0.6 % Drops 1 drp OPHTHALMIC (EYE) QID RF: 0 Spiriva Respimat 2.5 mcg/actuation Mist 2 puff INHALATION DAILY RF: 0 fluticasone furoate-vilanterol 200-25 mcg/dose Blister With Device 1 inh INHALATION DAILY RF: 0 Probiotic Acidophilus 1.5 mg (250 million cell) Capsule 100 mmu cells PO TIDM RF: 0 Discontinued diclofenac sodium 75 mg Tablet,Delayed Release (Dr/Ec) 75 mg PO BID RF: 0 Stand-Alone Forms: [facility] Discharge Orders: Discharge Order (Routine); Ordered 06/16/19 Ordered By: Teddy Flores Admission Data Admit Date/Time: 06/14/19 10:37 Attending Provider: Teddy Flores Admit Provider: Jessica Robb Primary Care Provider: Eleni Scott Other Providers: Saleem Monroe ; Jessica Robb ; Román Petersen ; David Son Service: Telemetry Medical Other Interventions: Discharge Summary Assessment (RN) Last Done: 06/16/19 15:44 Pending Studies at Discharge: No DC Date/Time DO NOT enter until pt leaves facility: 06/16/19 17:07
== END 2019-06-16 17:07 | disposition home or self-care (01) ==
LOC: 2W 07:52 → ED 07:52 → SUATTDRO 10:37 → 2W 10:44
DX: Z91.012 Allergy to eggs; M70.42 Prepatellar bursitis, left knee; Z88.8 Allergy status to other drugs, medicaments and biological substances; K21.9 Gastro-esophageal reflux disease without esophagitis; K62.5 Hemorrhage of anus and rectum; Z88.7 Allergy status to serum and vaccine; I10 Essential (primary) hypertension; Z96.653 Presence of artificial knee joint, bilateral; Z88.2 Allergy status to sulfonamides; I48.0 Paroxysmal atrial fibrillation; J45.909 Unspecified asthma, uncomplicated; Z91.018 Allergy to other foods; E78.5 Hyperlipidemia, unspecified; Z88.1 Allergy status to other antibiotic agents; E11.9 Type 2 diabetes mellitus without complications